=== PATIENT | male | born 1960 | race Caucasian/White ===

== ENCOUNTER 2017-12-18 12:15 | Emergency (ER) | payer OTHER ==
[2017-12-18 13:56] VITALS: BP 150/83
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
== END 2017-12-18 13:55 | disposition home or self-care (01) ==
LOC: ED 12:15
DX: S67.193A Crushing injury of left middle finger, initial encounter (principal); W23.0XXA Caught, crushed, jammed, or pinched between moving objects, initial encounter; Y92.9 Unspecified place or not applicable
CPT/HCPCS: 99282

== ENCOUNTER 2018-01-15 17:39 | Inpatient (IN) | payer OTHER ==
[2018-01-15] MEDS ORDERED: NS 0.9% 1000 ML*IV.FLUID IV ONE (18:10)
[2018-01-15 18:32] LABS: Hematocrit 43 % (42-52); Hemoglobin 14.7 g/dl (14.0-18.0); Mean Corpuscular HGB Conc 34 g/dl (31-36); Mean Corpuscular Hemoglobin 31 pg (27-31); Mean Corpuscular Volume 91 fL (80-94); Mean Platelet Volume 10 um3 (7.4-10.4); Platelet Count 179 10^3/ul (150-450); Red Blood Count 4.77 10^6/ul (4.0-5.4); Red Cell Distribution Width 13 % (10.5-15); White Blood Count 12.8 10^3/ul (3.5-10.8)
[2018-01-15 18:43] LABS: Urine Appearance Clear; Urine Blood 1+ (Negative); Urine Color Straw; Urine Ketones 2+ (Negative); Urine Protein Negative (Negative); Urine Specific Gravity 1.033 (1.010-1.030); Urine Urobilinogen Negative (Negative)
[2018-01-15 18:47] LABS: EGFR Non-African American 126.2 (>60)
[2018-01-15 18:48] LABS: INR 0.95 (0.77-1.02)
--- NOTE | 2018-01-15 18:52 | RAD ---
Indication: Cellulitis. Single frontal view of the chest performed at 1823 hours was reviewed. Comparison is made with previous exam dated March 18, 2016. No mediastinal shift is noted. Heart is of normal size and configuration. Lung rosas appear clear. IMPRESSION: NO ACTIVE CARDIOPULMONARY DISEASE IS NOTED.
[2018-01-15] MEDS ORDERED: Iohexol 300* (CONTRAST) 10 ML SDV IV ONE (18:57)
[2018-01-15] MEDS ORDERED: Insulin REGULAR(*) 1 UNITS UNIT IV PUSH ONE (18:58)
[2018-01-15 19:10] LABS: ABS Basophils 0.1 10^3/ul (0-0.2); ABS Eosinophils 0.1 10^3/ul (0-0.6); ABS Lymphocytes 1.3 10^3/ul (1.0-4.8); ABS Monocytes 1.6 10^3/ul (0-0.8); ABS Neutrophils 9.7 10^3/ul (1.5-7.7); ABS Nucleated RBC 0 10^3/ul; Eosinophil % 0.5 % (0-6); Lymphocyte % 9.9 % (25-47); Nucleated Red Blood Cells % 0
[2018-01-15] MEDS ORDERED: Acetaminophen TAB* 325 MG PO ONE (19:21)
[2018-01-15] MEDS: Iodixanol* (CONTRAST) 320 MG/ML 100 ML SDV IV ONE ×2 (19:42→20:57)
[2018-01-15] MEDS ORDERED: Piperacillin/Tazobac ADVAN(*) 3.375 GM in NS 0.9% 100 ML* 100 ML IVPB ONE (19:56)
[2018-01-15] MEDS ORDERED: Vancomycin(*) 1,000 MG in NS 0.9% 250 ML* 250 ML IVPB ONE (19:57)
--- NOTE | 2018-01-15 19:58 | RAD ---
Indication: Left head injury. CT of the brain was performed without IV contrast. Ventricular structures are midline. No midline shift is noted. The extra-axial spaces are unremarkable. There is no definite intracranial mass or hemorrhage. There is a large scalp hematoma over the left parietal area. No underlying calvarial fracture is noted. Mastoid air cells are otherwise unremarkable. Paranasal sinuses are unremarkable. IMPRESSION: Large scalp hematoma. No underlying skull fracture is noted. No definite intracranial hemorrhage is noted. Paranasal sinuses are clear.
--- NOTE | 2018-01-15 20:05 | RAD ---
Indication: Face and head injury. CT of the orbits was obtained in the axial plane. Sagittal and coronal reconstructed images were obtained. No fracture is identified. Scalp hematoma is noted over the left parietal area extending to the left orbit and left eyelid. No fracture of the zygoma or zygomatic arch is noted. The skull base is otherwise unremarkable. Mastoid air cells are unremarkable. Paranasal sinuses are unremarkable. The orbits are intact without evidence of intraconal or extraconal hematoma. IMPRESSION: Scalp hematoma with soft tissue swelling extending to the orbit. No fracture of the skull or orbits are identified. No intraconal or extraconal hematoma in the left orbit is noted.
[2018-01-15] MEDS ORDERED: oxyCODONE/Acetamin 5/325 MG* TAB PO ONE (20:51)
--- NOTE | 2018-01-15 21:02 | ED ---
Pop Bautista Jennifer, kendraibed for Nilesh Allan on 01/15/18 at 2002 . Progress - Progress Note Progress Note: This patient is a sign out from Dr. Hahn pending CXR, Brain CT, and Orbit CT CXR. Interpreted by a radiologist. IMPRESSION: NO ACTIVE CARDIOPULMONARY DISEASE. Dr. Allan has reviewed this report. Brain CT. Interpreted by a radiologist. IMPRESSION: Large scalp hematoma. No underlying skull fracture is noted. No definite intracranial hemorrhage is noted. Paranasal sinuses are clear. Dr. Allan has reviewed this report. Orbit CT. Interpreted by a radiologist. IMPRESSION: Scalp hematoma with soft tissue swelling extending to the orbit. No fracture of the skull or orbits are identified. No intraconal or extraconal hematoma in the left orbit is noted. Dr. Allan has reviewed this report. Course/Dx - Course Course Of Treatment: The patient is a sign out from Dr. Hahn. CXR, Brain CT, and Orbit CT were obtained. The patient is diagnosed with cellulitis of the face and hyperglycemia. The patient will be admitted to [facility] [place]. - Diagnoses Provider Diagnoses: Cellulitis of face, Hyperglycemia The documentation as recorded by the Pop wolff Jennifer accurately reflects the service I personally performed and the decisions made by Jerrell ortiz Emmanuel.
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
[2018-01-15] MEDS ORDERED: HYDROmorphone INJ* 1 MG/ML CARPUJECT SYRINGE IV ONE (22:03)
--- NOTE | 2018-01-15 22:29 | HP ---
H&P (Free Text) History and Physical: PCP: Milly Vega Date/Time: 01/15/2018 2220 CC: swelling, redness, & pain L faith HPI: Mr Ogden is a 57YO male HX DM2 on metformin who was in his barn 3 days ago when a board fell striking him in the L parietal area causing an abrasion. In the interim he has developed worsening erythema, localized swelling, and pain associated with F/C & sweats. He denies N/V, diarrhea, drainage, or other issues. He called the [facility] who advised ED evaluation which was positive for SIRS 2nd cellulitis and abscess formation of the L parietal scalp. PMedHx rheumatoid arthritis DM2 Ambulatory Orders Nursing to reconcile. NK [No Home Medications Reported] 01/15/18 Allergies prednisone Allergy (Verified 01/15/18 17:46) See Comment acute psychosis PSurgHx L cataract extraction SocHx: former smoker but now vapes non-nicotine home made solution, denies alcohol & recreational drugs; single, no children; self-employed; full code status FamHx: Mother passed in her 60s 2nd CAD. Father has been estranged his whole life. ROS: as above, otherwise reviewed and all were negative vitals: Vital Signs Temp 36.9 C 01/16/18 03:46 Pulse 123 01/16/18 03:46 Resp 20 01/16/18 03:55 BP 143/88 01/16/18 03:46 Pulse Ox 96 01/16/18 03:46 Intake & Output 01/15/18 01/15/18 01/16/18 11:59 23:59 11:59 Weight 104.326 kg 91.58 kg Constitutional: NAD, normally developed, well-nourished white male HEENM: swelling/erythema/tenderness L face and parietal scalp; sclera/ conjunctiva: anicteric; hearing: clinically mildly decreased; oropharynx: clear , mucosa moist Neck: soft tissue: no nuchal rigidity; thyroid: normal Pulmonary: clear to auscultation bilaterally, good aeration, no accessory muscle use CV: RR/RR, normal S1S2, no carotid bruit, no jugular venous distention, 2+ B DP/ PT, no edema Abdominal: soft, non-distended, non-tender, no rebound/guarding/rigidity, normoactive bowel sounds, no hepatosplenomegaly or masses, no costovertebral angle tenderness Musculoskeletal: general: grossly intact, no tenderness to palpation Integumental: L scalp with ~2cm flocculent area which was I&D'd in the ED by this journalists and other writers using an 18g needle edge yielding ~1.5cc marysol pus, wound CX sent Psychiatric orientation: AA&O to PPS affect: calm mood: cooperative eye contact: fair to good content: reliable responses: timely insight: good Testing: Lab Results 01/15/18 01/15/18 01/15/18 Range/Units 18:20 18:20 18:20 WBC (3.5-10.8) 10^3/ul RBC (4.0-5.4) 10^6/ul Hgb (14.0-18.0) g/dl Hct (42-52) % MCV (80-94) fL MCH (27-31) pg MCHC (31-36) g/dl RDW (10.5-15) % Plt Count (150-450) 10^3/ul MPV (7.4-10.4) um3 Neut % (Auto) (38-83) % Lymph % (Auto) (25-47) % Woodward % (Auto) (0-7) % Eos % (Auto) (0-6) % Baso % (Auto) (0-2) % Absolute Neuts (auto) (1.5-7.7) 10^3/ul Absolute Lymphs (auto) (1.0-4.8) 10^3/ul Absolute Monos (auto) (0-0.8) 10^3/ul Absolute Eos (auto) (0-0.6) 10^3/ul Absolute Basos (auto) (0-0.2) 10^3/ul Absolute Nucleated RBC 10^3/ul Nucleated RBC % ESR (0-20) mm/Hr INR (Anticoag Therapy) 0.95 (0.77-1.02) APTT 30.2 (26.0-36.3) seconds VBG pH (7.33-7.43) VBG pCO2 (41-51) mmHg VBG pO2 (35-45) mmHg VBG HCO3 (24-28) mmol/L VBG O2 Saturation (70-80) % VBG Base Excess (0-4) Sodium 128 L (133-145) mmol/L Potassium 4.1 (3.5-5.0) mmol/L Chloride 94 L (101-111) mmol/L Carbon Dioxide 21 L (22-32) mmol/L Anion Gap 13 H (2-11) mmol/L BUN 15 (6-24) mg/dL Creatinine 0.65 L (0.67-1.17) mg/dL Est GFR ( Amer) 162.3 (>60) Est GFR (Non-Af Amer) 126.2 (>60) BUN/Creatinine Ratio 23.1 H (8-20) Glucose 546 H* (70-100) mg/dL POC Glucose (mg/dL) (70-100) mg/dL Hemoglobin A1c (4.0-5.6) % Lactic Acid (0.5-2.0) mmol/L Calcium 9.3 (8.6-10.3) mg/dL Total Bilirubin 0.70 (0.2-1.0) mg/dL AST 8 L (13-39) U/L ALT 6 L (7-52) U/L Alkaline Phosphatase 75 (34-104) U/L Total Creatine Kinase 29 (10-223) U/L Troponin I 0.03 (<0.04) ng/mL C-Reactive Protein 248.16 H (< 5.00) mg/L B-Natriuretic Peptide 226 H ( - 100) pg/mL Total Protein 6.9 (6.4-8.9) g/dL Albumin 3.6 (3.2-5.2) g/dL Globulin 3.3 (2-4) g/dL Albumin/Globulin Ratio 1.1 (1-3) Urine Color Urine Appearance Urine pH (5-9) Ur Specific [place] (1.010-1.030) Urine Protein (Negative) Urine Ketones (Negative) Urine Blood (Negative) Urine Nitrate (Negative) Urine Bilirubin (Negative) Urine Urobilinogen (Negative) Ur Leukocyte Esterase (Negative) Urine WBC (Auto) (Absent) Urine RBC (Auto) (Absent) Urine Bacteria (Absent) Urine Glucose (Negative) 01/15/18 01/15/18 01/15/18 Range/Units 18:20 18:20 18:20 WBC 12.8 H (3.5-10.8) 10^3/ul RBC 4.77 (4.0-5.4) 10^6/ul Hgb 14.7 (14.0-18.0) g/dl Hct 43 (42-52) % MCV 91 (80-94) fL MCH 31 (27-31) pg MCHC 34 (31-36) g/dl RDW 13 (10.5-15) % Plt Count 179 (150-450) 10^3/ul MPV 10 (7.4-10.4) um3 Neut % (Auto) 76.4 (38-83) % Lymph % (Auto) 9.9 L (25-47) % Woodward % (Auto) 12.6 H (0-7) % Eos % (Auto) 0.5 (0-6) % Baso % (Auto) 0.6 (0-2) % Absolute Neuts (auto) 9.7 H (1.5-7.7) 10^3/ul Absolute Lymphs (auto) 1.3 (1.0-4.8) 10^3/ul Absolute Monos (auto) 1.6 H (0-0.8) 10^3/ul Absolute Eos (auto) 0.1 (0-0.6) 10^3/ul Absolute Basos (auto) 0.1 (0-0.2) 10^3/ul Absolute Nucleated RBC 0 10^3/ul Nucleated RBC % 0 ESR 74 H (0-20) mm/Hr INR (Anticoag Therapy) (0.77-1.02) APTT (26.0-36.3) seconds VBG pH (7.33-7.43) VBG pCO2 (41-51) mmHg VBG pO2 (35-45) mmHg VBG HCO3 (24-28) mmol/L VBG O2 Saturation (70-80) % VBG Base Excess (0-4) Sodium (133-145) mmol/L Potassium (3.5-5.0) mmol/L Chloride (101-111) mmol/L Carbon Dioxide (22-32) mmol/L Anion Gap (2-11) mmol/L BUN (6-24) mg/dL Creatinine (0.67-1.17) mg/dL Est GFR ( Amer) (>60) Est GFR (Non-Af Amer) (>60) BUN/Creatinine Ratio (8-20) Glucose (70-100) mg/dL POC Glucose (mg/dL) (70-100) mg/dL Hemoglobin A1c (4.0-5.6) % Lactic Acid 1.3 (0.5-2.0) mmol/L Calcium (8.6-10.3) mg/dL Total Bilirubin (0.2-1.0) mg/dL AST (13-39) U/L ALT (7-52) U/L Alkaline Phosphatase (34-104) U/L Total Creatine Kinase (10-223) U/L Troponin I (<0.04) ng/mL C-Reactive Protein (< 5.00) mg/L B-Natriuretic Peptide ( - 100) pg/mL Total Protein (6.4-8.9) g/dL Albumin (3.2-5.2) g/dL Globulin (2-4) g/dL Albumin/Globulin Ratio (1-3) Urine Color Straw Urine Appearance Clear Urine pH 6.0 (5-9) Ur Specific [place] 1.033 H (1.010-1.030) Urine Protein Negative (Negative) Urine Ketones 2+ H (Negative) Urine Blood 1+ H (Negative) Urine Nitrate Negative (Negative) Urine Bilirubin Negative (Negative) Urine Urobilinogen Negative (Negative) Ur Leukocyte Esterase Negative (Negative) Urine WBC (Auto) Trace(0-5/hpf) (Absent) Urine RBC (Auto) Trace(0-2/hpf) (Absent) Urine Bacteria Absent (Absent) Urine Glucose 3+(>=500 mg/dl) H (Negative) 01/15/18 01/15/18 01/15/18 Range/Units 18:20 19:21 22:03 WBC (3.5-10.8) 10^3/ul RBC (4.0-5.4) 10^6/ul Hgb (14.0-18.0) g/dl Hct (42-52) % MCV (80-94) fL MCH (27-31) pg MCHC (31-36) g/dl RDW (10.5-15) % Plt Count (150-450) 10^3/ul MPV (7.4-10.4) um3 Neut % (Auto) (38-83) % Lymph % (Auto) (25-47) % Woodward % (Auto) (0-7) % Eos % (Auto) (0-6) % Baso % (Auto) (0-2) % Absolute Neuts (auto) (1.5-7.7) 10^3/ul Absolute Lymphs (auto) (1.0-4.8) 10^3/ul Absolute Monos (auto) (0-0.8) 10^3/ul Absolute Eos (auto) (0-0.6) 10^3/ul Absolute Basos (auto) (0-0.2) 10^3/ul Absolute Nucleated RBC 10^3/ul Nucleated RBC % ESR (0-20) mm/Hr INR (Anticoag Therapy) (0.77-1.02) APTT (26.0-36.3) seconds VBG pH 7.36 (7.33-7.43) VBG pCO2 38 L (41-51) mmHg VBG pO2 49 H (35-45) mmHg VBG HCO3 21.9 L (24-28) mmol/L VBG O2 Saturation 88.4 H (70-80) % VBG Base Excess -3.5 L (0-4) Sodium (133-145) mmol/L Potassium (3.5-5.0) mmol/L Chloride (101-111) mmol/L Carbon Dioxide (22-32) mmol/L Anion Gap (2-11) mmol/L BUN (6-24) mg/dL Creatinine (0.67-1.17) mg/dL Est GFR ( Amer) (>60) Est GFR (Non-Af Amer) (>60) BUN/Creatinine Ratio (8-20) Glucose (70-100) mg/dL POC Glucose (mg/dL) (70-100) mg/dL Hemoglobin A1c 13.7 H (4.0-5.6) % Lactic Acid 0.7 (0.5-2.0) mmol/L Calcium (8.6-10.3) mg/dL Total Bilirubin (0.2-1.0) mg/dL AST (13-39) U/L ALT (7-52) U/L Alkaline Phosphatase (34-104) U/L Total Creatine Kinase (10-223) U/L Troponin I (<0.04) ng/mL C-Reactive Protein (< 5.00) mg/L B-Natriuretic Peptide ( - 100) pg/mL Total Protein (6.4-8.9) g/dL Albumin (3.2-5.2) g/dL Globulin (2-4) g/dL Albumin/Globulin Ratio (1-3) Urine Color Urine Appearance Urine pH (5-9) Ur Specific [place] (1.010-1.030) Urine Protein (Negative) Urine Ketones (Negative) Urine Blood (Negative) Urine Nitrate (Negative) Urine Bilirubin (Negative) Urine Urobilinogen (Negative) Ur Leukocyte Esterase (Negative) Urine WBC (Auto) (Absent) Urine RBC (Auto) (Absent) Urine Bacteria (Absent) Urine Glucose (Negative) 01/16/18 01/16/18 01/16/18 Range/Units 00:19 01:21 01:21 WBC (3.5-10.8) 10^3/ul RBC (4.0-5.4) 10^6/ul Hgb (14.0-18.0) g/dl Hct (42-52) % MCV (80-94) fL MCH (27-31) pg MCHC (31-36) g/dl RDW (10.5-15) % Plt Count (150-450) 10^3/ul MPV (7.4-10.4) um3 Neut % (Auto) (38-83) % Lymph % (Auto) (25-47) % Woodward % (Auto) (0-7) % Eos % (Auto) (0-6) % Baso % (Auto) (0-2) % Absolute Neuts (auto) (1.5-7.7) 10^3/ul Absolute Lymphs (auto) (1.0-4.8) 10^3/ul Absolute Monos (auto) (0-0.8) 10^3/ul Absolute Eos (auto) (0-0.6) 10^3/ul Absolute Basos (auto) (0-0.2) 10^3/ul Absolute Nucleated RBC 10^3/ul Nucleated RBC % ESR (0-20) mm/Hr INR (Anticoag Therapy) 0.90 (0.77-1.02) APTT 28.0 (26.0-36.3) seconds VBG pH (7.33-7.43) VBG pCO2 (41-51) mmHg VBG pO2 (35-45) mmHg VBG HCO3 (24-28) mmol/L VBG O2 Saturation (70-80) % VBG Base Excess (0-4) Sodium (133-145) mmol/L Potassium (3.5-5.0) mmol/L Chloride (101-111) mmol/L Carbon Dioxide (22-32) mmol/L Anion Gap (2-11) mmol/L BUN 13 (6-24) mg/dL Creatinine 0.64 L (0.67-1.17) mg/dL Est GFR ( Amer) 165.2 (>60) Est GFR (Non-Af Amer) 128.5 (>60) BUN/Creatinine Ratio (8-20) Glucose (70-100) mg/dL POC Glucose (mg/dL) 297 H (70-100) mg/dL Hemoglobin A1c (4.0-5.6) % Lactic Acid (0.5-2.0) mmol/L Calcium (8.6-10.3) mg/dL Total Bilirubin (0.2-1.0) mg/dL AST (13-39) U/L ALT (7-52) U/L Alkaline Phosphatase (34-104) U/L Total Creatine Kinase (10-223) U/L Troponin I (<0.04) ng/mL C-Reactive Protein (< 5.00) mg/L B-Natriuretic Peptide ( - 100) pg/mL Total Protein (6.4-8.9) g/dL Albumin (3.2-5.2) g/dL Globulin (2-4) g/dL Albumin/Globulin Ratio (1-3) Urine Color Urine Appearance Urine pH (5-9) Ur Specific [place] (1.010-1.030) Urine Protein (Negative) Urine Ketones (Negative) Urine Blood (Negative) Urine Nitrate (Negative) Urine Bilirubin (Negative) Urine Urobilinogen (Negative) Ur Leukocyte Esterase (Negative) Urine WBC (Auto) (Absent) Urine RBC (Auto) (Absent) Urine Bacteria (Absent) Urine Glucose (Negative) 01/16/18 Range/Units 01:21 WBC 12.1 H (3.5-10.8) 10^3/ul RBC 4.61 (4.0-5.4) 10^6/ul Hgb 14.4 (14.0-18.0) g/dl Hct 42 (42-52) % MCV 91 (80-94) fL MCH 31 (27-31) pg MCHC 34 (31-36) g/dl RDW 13 (10.5-15) % Plt Count 166 (150-450) 10^3/ul MPV 10 (7.4-10.4) um3 Neut % (Auto) 70.4 (38-83) % Lymph % (Auto) 16.7 L (25-47) % Woodward % (Auto) 10.8 H (0-7) % Eos % (Auto) 1.3 (0-6) % Baso % (Auto) 0.8 (0-2) % Absolute Neuts (auto) 8.5 H (1.5-7.7) 10^3/ul Absolute Lymphs (auto) 2.0 (1.0-4.8) 10^3/ul Absolute Monos (auto) 1.3 H (0-0.8) 10^3/ul Absolute Eos (auto) 0.2 (0-0.6) 10^3/ul Absolute Basos (auto) 0.1 (0-0.2) 10^3/ul Absolute Nucleated RBC 0 10^3/ul Nucleated RBC % 0.2 ESR (0-20) mm/Hr INR (Anticoag Therapy) (0.77-1.02) APTT (26.0-36.3) seconds VBG pH (7.33-7.43) VBG pCO2 (41-51) mmHg VBG pO2 (35-45) mmHg VBG HCO3 (24-28) mmol/L VBG O2 Saturation (70-80) % VBG Base Excess (0-4) Sodium (133-145) mmol/L Potassium (3.5-5.0) mmol/L Chloride (101-111) mmol/L Carbon Dioxide (22-32) mmol/L Anion Gap (2-11) mmol/L BUN (6-24) mg/dL Creatinine (0.67-1.17) mg/dL Est GFR ( Amer) (>60) Est GFR (Non-Af Amer) (>60) BUN/Creatinine Ratio (8-20) Glucose (70-100) mg/dL POC Glucose (mg/dL) (70-100) mg/dL Hemoglobin A1c (4.0-5.6) % Lactic Acid (0.5-2.0) mmol/L Calcium (8.6-10.3) mg/dL Total Bilirubin (0.2-1.0) mg/dL AST (13-39) U/L ALT (7-52) U/L Alkaline Phosphatase (34-104) U/L Total Creatine Kinase (10-223) U/L Troponin I (<0.04) ng/mL C-Reactive Protein (< 5.00) mg/L B-Natriuretic Peptide ( - 100) pg/mL Total Protein (6.4-8.9) g/dL Albumin (3.2-5.2) g/dL Globulin (2-4) g/dL Albumin/Globulin Ratio (1-3) Urine Color Urine Appearance Urine pH (5-9) Ur Specific [place] (1.010-1.030) Urine Protein (Negative) Urine Ketones (Negative) Urine Blood (Negative) Urine Nitrate (Negative) Urine Bilirubin (Negative) Urine Urobilinogen (Negative) Ur Leukocyte Esterase (Negative) Urine WBC (Auto) (Absent) Urine RBC (Auto) (Absent) Urine Bacteria (Absent) Urine Glucose (Negative) ECG, personally reviewed: NSR rate 124, no ischemia CXR, personally reviewed: IMPRESSION: NO ACTIVE CARDIOPULMONARY DISEASE IS NOTED. CT orbits WO, personally reviewed: IMPRESSION: Scalp hematoma with soft tissue swelling extending to the orbit. No fracture of the skull or orbits are identified. No intraconal or extraconal hematoma in the left orbit is noted. CT brain WO, personally reviewed: IMPRESSION: Large scalp hematoma. No underlying skull fracture is noted. No definite intracranial hemorrhage is noted. Paranasal sinuses are clear. Impression: 57M HX DM2 presents with sepsis 2nd cellulitis & abscess formation of the L parietal scalp extending into the L upper face DIAGNOSIS & PLAN Primary sepsis 2nd cellulitis & abscess formation of the L parietal scalp extending into the L upper face : IV vancomycin & piperacillin/tazobactam given in ED : MSSA positive/MRSA negative wound screen, continue with cefepime starting in AM : IVFs : pain control : supportive care Secondary DM2 : check A1c : consistent carb diet : correctional insulin rheumatoid arthritis : no acute issues Admission Rational: admission for sepsis 2nd scalp abscess requiring IV ABX & IVFs; inappropriate for outpatient setting DVTp: SCDs & heparin SQ Code Status: full HCP: declines to designate
[2018-01-15] MEDS ORDERED: Albuterol 2.5 MG/3 ML NEB.SOL* (0.083%) INH PRN (22:32)
[2018-01-15] MEDS ORDERED: Melatonin (NF) 3 MG TAB PO PRN (22:32)
[2018-01-15] MEDS ORDERED: Ondansetron INJ* 2 MG/ML VIAL IV PRN (22:33)
[2018-01-15] MEDS ORDERED: Vancomycin per Pharmacy* NOTE FOLLOW UP SCH (23:00)
[2018-01-16] MEDS: traMADol TAB* 50 MG PO PRN ×2 (00:51→15:31)
[2018-01-16] MEDS: NS 0.9% 1000 ML* 1,000 ML IV SCH ×3 (00:52→21:56)
[2018-01-16] MEDS: Iodixanol* (CONTRAST) 320 MG/ML 100 ML SDV IV ONE (01:37)
[2018-01-16 01:43] LABS: ABS Basophils 0.1 10^3/ul (0-0.2); ABS Eosinophils 0.2 10^3/ul (0-0.6); ABS Monocytes 1.3 10^3/ul (0-0.8); ABS Neutrophils 8.5 10^3/ul (1.5-7.7); ABS Nucleated RBC 0 10^3/ul; Eosinophil % 1.3 % (0-6); Hematocrit 42 % (42-52); Hemoglobin 14.4 g/dl (14.0-18.0); Lymphocyte % 16.7 % (25-47); Mean Corpuscular HGB Conc 34 g/dl (31-36); Mean Corpuscular Hemoglobin 31 pg (27-31); Mean Corpuscular Volume 91 fL (80-94); Mean Platelet Volume 10 um3 (7.4-10.4); Nucleated Red Blood Cells % 0.2; Platelet Count 166 10^3/ul (150-450); Red Blood Count 4.61 10^6/ul (4.0-5.4); Red Cell Distribution Width 13 % (10.5-15); White Blood Count 12.1 10^3/ul (3.5-10.8)
[2018-01-16 01:53] LABS: INR 0.9 (0.77-1.02)
[2018-01-16 01:58] LABS: EGFR Non-African American 128.5 (>60)
[2018-01-16] MEDS: oxyCODONE TAB* 5 MG TAB PO PRN ×3 (02:02→19:31)
[2018-01-16] MEDS: Cefepime(*) 1 GM in D5W 50 ML BAG* 50 ML IVPB SCH ×2 (04:12→15:32)
[2018-01-16] MEDS: Omeprazole CAP* 20 MG PO SCH (05:19)
[2018-01-16] MEDS: Heparin VIAL(*) 5000 UNITS/ML VIAL (FIVE THOUSAND) SUBCUT SCH ×3 (05:19→21:00)
[2018-01-16 06:21] LABS: Hematocrit 40 % (42-52); Hemoglobin 13.7 g/dl (14.0-18.0); Mean Corpuscular HGB Conc 34 g/dl (31-36); Mean Corpuscular Hemoglobin 31 pg (27-31); Mean Corpuscular Volume 91 fL (80-94); Mean Platelet Volume 9 um3 (7.4-10.4); Platelet Count 161 10^3/ul (150-450); Red Cell Distribution Width 13 % (10.5-15); White Blood Count 11.7 10^3/ul (3.5-10.8)
[2018-01-16 06:36] LABS: EGFR Non-African American 146.8 (>60)
[2018-01-16 07:10] LABS: ABS Basophils 0.1 10^3/ul (0-0.2); ABS Eosinophils 0.1 10^3/ul (0-0.6); ABS Lymphocytes 1.2 10^3/ul (1.0-4.8); ABS Monocytes 1.6 10^3/ul (0-0.8); ABS Neutrophils 8.8 10^3/ul (1.5-7.7); ABS Nucleated RBC 0 10^3/ul; Eosinophil % 0.9 % (0-6); Lymphocyte % 10.1 % (25-47); Nucleated Red Blood Cells % 0
--- NOTE | 2018-01-16 08:42 | PN ---
Subjective Date of Service: 01/16/18 Interval History: . Interviewed and examined patient at bedside; Discussed case with Dr. Galo ; Reviewed previous notes and radiology results; Family History: Unchanged from Admission Social History: Unchanged from Admission Past Medical History: Unchanged from Admission Objective Active Medications: . Acetaminophen (Tylenol Tab*) 650 mg PO Q6H PRN PRN Reason: FEVER/PAIN Albuterol (Ventolin 2.5 Mg/3 Ml Neb.Perla*) 2.5 mg INH Q2H PRN PRN Reason: SOB/WHEEZING Docusate Sodium (Colace Cap*) 200 mg PO BID [facility] Heparin Sodium (Porcine) (Heparin Vial(*)) 5,000 units SUBCUT Q8HR [facility] Last Admin: 01/16/18 05:19 Dose: 5,000 units Hydromorphone HCl (Dilaudid Injic*) 0.5 mg IV Q4H PRN PRN Reason: PAIN Sodium Chloride (Ns 0.9% 1000 Ml*) 1,000 mls @ 100 mls/hr IV PER RATE [facility] Last Admin: 01/16/18 00:52 Dose: 100 mls/hr Cefepime HCl 1 gm/ Dextrose 50 mls @ 100 mls/hr IVPB Q12H [facility] Last Admin: 01/16/18 04:12 Dose: 100 mls/hr Insulin Human Lispro (Humalog*) 0 units SUBCUT ACHS MEE PRN Reason: Protocol Melatonin (Melatonin (Nf)) 3 mg PO BEDTIME PRN; Protocol PRN Reason: Sleep Omeprazole (Prilosec Cap*) 20 mg PO DAILY@0600 [facility] Last Admin: 01/16/18 05:19 Dose: 20 mg Ondansetron HCl (Zofran Inj*) 4 mg IV Q6H PRN PRN Reason: NAUSEA Oxycodone HCl (Roxycodone Tab) 5 mg PO Q4H PRN PRN Reason: PAIN Last Admin: 01/16/18 02:02 Dose: 5 mg Tramadol HCl (Ultram*) 50 mg PO Q6H PRN PRN Reason: PAIN Last Admin: 01/16/18 00:51 Dose: 50 mg . Vital Signs - 8 hr 01/16/18 01/16/18 01/16/18 00:44 00:51 01:36 Temperature 98.6 F Pulse Rate 125 Respiratory 20 20 20 Rate Blood Pressure 148/100 (mmHg) O2 Sat by Pulse 96 Oximetry 01/16/18 01/16/18 01/16/18 01:50 02:02 03:31 Temperature 98.6 F Pulse Rate 123 Respiratory 20 20 20 Rate Blood Pressure 148/100 (mmHg) O2 Sat by Pulse 95 Oximetry Oxygen Devices in Use Now: None Appearance: NAD Eyes: No Scleral Icterus Ears/Nose/Mouth/Throat: Clear Oropharnyx Neck: Trachea Midline Respiratory: Clear to Auscultation Cardiovascular: NL Sounds; No Murmurs; No JVD Lymphatic: No Axillary Adenopathy Extremities: No Edema Skin: No Rash or Ulcers Neurological: Alert and Oriented x 3, NL Gait Lines/Tubes/Other Access: Clean, Dry and Intact Peripheral IV Nutrition: Taking PO's Result Diagrams: 01/16/18 06:01 01/16/18 06:01 Additional Lab and Data: . Assess/Plan/Problems-Billing . Assessment: 57 y.o. M with h/o RA and DM2, now with head injury, infected scalp hematoma with abscess and surrounding cellulitis. #1. Sepsis 2nd cellulitis & abscess formation of the L parietal scalp extending into the L upper face - MSSA positive/MRSA negative wound screen, - await final culture results - change cefepime to oxacillin 2g IV q4 given MSSA culture results and failure to respond to cefepime. - IVFs, as needed - pain control - supportive care - Given Hgb A1C > 13 --> risk for other causes of infection ,like fungal infection, must be considered. - Request ID consultation 01/17/18 to comment on overall antibiotic regimen. Secondary #2 - DM2 - check A1c --> 13.6 ! - consistent carb diet - correctional insulin - add basal insulin ; start with lantus 15 units QHS --> expect to increase dose. #3 - rheumatoid arthritis - no acute issues .
[2018-01-16] MEDS: Insulin LISPRO* 1 UNITS UNIT SUBCUT SCH ×4 (09:06→20:59)
[2018-01-16] MEDS: Docusate CAP* 100 MG PO SCH ×3 (09:08→20:59)
[2018-01-16] MEDS: HYDROmorphone INJ* 1 MG/ML CARPUJECT SYRINGE IV PRN ×3 (11:48→19:30)
[2018-01-16] MEDS: Insulin GLARGINE(*) 1 UNITS UNIT SUBCUT SCH (17:47)
[2018-01-16] MEDS: Oxacillin(*) 2 GM in NS 0.9% 100 ML* 100 ML IVPB SCH ×2 (17:47→21:58)
[2018-01-17] MEDS: Oxacillin(*) 2 GM in NS 0.9% 100 ML* 100 ML IVPB SCH ×6 (02:12→22:20)
[2018-01-17] MEDS: HYDROmorphone INJ* 1 MG/ML CARPUJECT SYRINGE IV PRN ×2 (05:03→23:55)
[2018-01-17] MEDS: oxyCODONE TAB* 5 MG TAB PO PRN ×4 (05:05→20:52)
[2018-01-17] MEDS: Omeprazole CAP* 20 MG PO SCH (05:05)
[2018-01-17] MEDS: Heparin VIAL(*) 5000 UNITS/ML VIAL (FIVE THOUSAND) SUBCUT SCH ×3 (05:06→20:51)
[2018-01-17 06:44] LABS: ABS Basophils 0.1 10^3/ul (0-0.2); ABS Eosinophils 0.2 10^3/ul (0-0.6); ABS Lymphocytes 1.2 10^3/ul (1.0-4.8); ABS Monocytes 0.8 10^3/ul (0-0.8); ABS Neutrophils 5.3 10^3/ul (1.5-7.7); ABS Nucleated RBC 0 10^3/ul; Eosinophil % 2.3 % (0-6); Hematocrit 34 % (42-52); Hemoglobin 11.9 g/dl (14.0-18.0); Lymphocyte % 15.5 % (25-47); Mean Corpuscular HGB Conc 35 g/dl (31-36); Mean Corpuscular Hemoglobin 31 pg (27-31); Mean Corpuscular Volume 90 fL (80-94); Mean Platelet Volume 9 um3 (7.4-10.4); Nucleated Red Blood Cells % 0; Platelet Count 147 10^3/ul (150-450); Red Blood Count 3.78 10^6/ul (4.0-5.4); Red Cell Distribution Width 13 % (10.5-15); White Blood Count 7.5 10^3/ul (3.5-10.8)
[2018-01-17 07:07] LABS: EGFR Non-African American 234.4 (>60)
[2018-01-17] MEDS ORDERED: NS 0.9% 100 ML* 100 ML ONE (08:49)
--- NOTE | 2018-01-17 08:57 | PN ---
Subjective Date of Service: 01/17/18 Interval History: Intensity of pain, area involved, and swelling all slightly less than yesterday. No sweats or chills. Appetite OK. No bowel c/o. Family History: Unchanged from Admission Social History: Unchanged from Admission Past Medical History: Unchanged from Admission Objective Active Medications: Acetaminophen (Tylenol Tab*) 650 mg PO Q6H PRN PRN Reason: FEVER/PAIN Albuterol (Ventolin 2.5 Mg/3 Ml Neb.Perla*) 2.5 mg INH Q2H PRN PRN Reason: SOB/WHEEZING Heparin Sodium (Porcine) (Heparin Vial(*)) 5,000 units SUBCUT Q8HR [facility] Last Admin: 01/17/18 05:06 Dose: 5,000 units Hydromorphone HCl (Dilaudid Injic*) 0.5 mg IV Q4H PRN PRN Reason: PAIN Last Admin: 01/17/18 05:03 Dose: 0.5 mg Sodium Chloride (Ns 0.9% 1000 Ml*) 1,000 mls @ 100 mls/hr IV PER RATE [facility] Last Admin: 01/16/18 21:56 Dose: 100 mls/hr Oxacillin Sodium 2 gm/ Sodium (Chloride) 100 mls @ 200 mls/hr IVPB Q4H [facility] Last Admin: 01/17/18 05:07 Dose: 200 mls/hr Insulin Glargine (Lantus(*)) 15 units SUBCUT Q24H [facility] Last Admin: 01/16/18 17:47 Dose: 15 units Insulin Human Lispro (Humalog*) 0 units SUBCUT ACHS [facility] PRN Reason: Protocol Last Admin: 01/16/18 20:59 Dose: 4 units Ondansetron HCl (Zofran Inj*) 4 mg IV Q6H PRN PRN Reason: NAUSEA Oxycodone HCl (Roxycodone Tab*) 5 mg PO Q4H PRN PRN Reason: PAIN Last Admin: 01/17/18 05:05 Dose: 5 mg Tramadol HCl (Ultram*) 50 mg PO Q6H PRN PRN Reason: PAIN Last Admin: 01/16/18 15:31 Dose: 50 mg Vital Signs - 8 hr 01/17/18 01/17/18 01/17/18 03:40 05:03 05:05 Temperature 97.9 F Pulse Rate 83 Respiratory 20 18 18 Rate Blood Pressure 128/69 (mmHg) O2 Sat by Pulse 99 Oximetry 01/17/18 01/17/18 06:15 07:27 Temperature 98.1 F Pulse Rate 81 Respiratory 17 16 Rate Blood Pressure 120/70 (mmHg) O2 Sat by Pulse 96 Oximetry Oxygen Devices in Use Now: None Appearance: Alert, sitting on the edge of his bed. In good spirits. Looks comfortable. Eyes: No Scleral Icterus Neck: NL Appearance and Movements; NL JVP, No Thyroid Enlargement, Masses Respiratory: Symmetrical Chest Expansion and Respiratory Effort, Clear to Auscultation, Clear to Percussion Cardiovascular: NL Sounds; No Murmurs; No JVD, RRR, No Edema, - Extremities: No Edema, No Clubbing, Cyanosis, - Skin: No Nodules or Sclerosis, - - small amount purulent drainage on bandage and skin L scalp, very tender up to 6 cm from wound. Minimal swelling L upper lid and scalp. Result Diagrams: 01/17/18 06:30 01/17/18 06:30 Additional Lab and Data: . Assess/Plan/Problems-Billing . Assessment: 57 y.o. M with h/o RA and DM2, now with head injury, infected scalp hematoma with abscess and surrounding cellulitis. #1. Sepsis 2nd cellulitis & abscess formation of the L parietal scalp extending into the L upper face - MSSA positive/MRSA negative wound screen, - await final culture results - change cefepime to oxacillin 2g IV q4 given MSSA culture results and failure to respond to cefepime. - IVFs, as needed - pain control - supportive care - Given Hgb A1C > 13 --> risk for other causes of infection ,like fungal infection, must be considered. - Request ID consultation 01/17/18 to comment on overall antibiotic regimen. Secondary #2 - DM2 - check A1c --> 13.6 ! - consistent carb diet - correctional insulin - add basal insulin ; start with lantus 15 units QHS --> expect to increase dose. #3 - rheumatoid arthritis - no acute issues . - Patient Problems (1) Scalp abscess Current Visit: Yes Status: Acute Code(s): L02.811 - CUTANEOUS ABSCESS OF HEAD [ANY PART, EXCEPT FACE] SNOMED Code(s): 77581148 Comment: Slowlly improving, drained in ED. Continue oxacillin. C&S grew MSSA. (2) Diabetes Current Visit: Yes Status: Acute Code(s): E11.9 - TYPE 2 DIABETES MELLITUS WITHOUT COMPLICATIONS SNOMED Code(s): 90845453 Comment: Continue Lispro by SS. Takes metformin at home. Med rec ordered. (3) Rheumatoid arthritis Current Visit: Yes Status: Acute Code(s): M06.9 - RHEUMATOID ARTHRITIS, UNSPECIFIED SNOMED Code(s): 27853890 Comment: Little or no sx's at present. Med rec ordered.
[2018-01-17] MEDS: Insulin LISPRO* 1 UNITS UNIT SUBCUT SCH ×4 (09:03→20:51)
[2018-01-17] MEDS ORDERED: Magnesium Hydroxide LIQ* 30 ML UDC PO PRN (09:08)
[2018-01-17] MEDS: Polyethylene Glycol 3350* 17 GM PACKET PO SCH ×2 (10:04→20:52)
[2018-01-17] MEDS ORDERED: Tetan/Diph/Pertus SYR(Tdap)* 0.5 ML SYR(BOOSTRIX) use SYR IM ONE (10:30)
--- NOTE | 2018-01-17 10:48 | PN ---
Progress Note - Progress Note Date of Service: 01/17/18 Note: Mr. Aris Ogden will be discharged soon and on discharge will need to take dicloxacillin 500 mg QID for 14 days, dispense 56 tablets, no refills. His diagnosis is scalp abcess.
[2018-01-17] MEDS: Acetaminophen TAB* 325 MG PO PRN (11:52)
[2018-01-17] MEDS: NS 0.9% 1000 ML* 1,000 ML IV SCH ×2 (11:57→23:27)
--- NOTE | 2018-01-17 13:41 | CONS ---
CONSULTATION REPORT: DATE OF CONSULT: 01/17/18 REQUESTING PHYSICIAN: Dr. Merritt. CONSULTING SERVICE: Infectious Disease. REASON FOR CONSULTATION: Left scalp abscess and cellulitis. IMPRESSION: 1. Left scalp abscess and cellulitis due to methicillin-sensitive Staph aureus that had started as a hematoma that became infected after abrasion from trauma from falling wood. 2. Rheumatoid arthritis, on Enbrel. 3. Poorly controlled diabetes. RECOMMENDATIONS: 1. Continue oxacillin 2 g every 4 hours, follow with symptoms which at this point are improving with IV antibiotics and an initial drainage procedure with aspiration. 2. Blood glucose measures as you are doing. 3. Tdap. HISTORY OF PRESENT ILLNESS: This is a 57-year-old male with diabetes, rheumatoid arthritis, admitted with left face and scalp swelling and redness. About a week ago, a board fell on his face while he was in his barn, had an abrasion there. He held his Enbrel but developed redness, pain, and swelling that extended from the scalp over to his left eye and then over the bridge of his nose to the right eye. He came to the hospital on the . His white count was 13,000. In the ER, he had aspiration of the wound with some purulent material obtained, sent for gram stain that showed gram-positive cocc i and PCR staph aureus positive, the culture is pending. Blood cultures are negative. He was initia lly on vancomycin and cefepime and now on oxacillin. The white count has trended down to 7. The red ness and swelling is starting to recede from his face and is up just under the left yazidi where ther e is some pain and swelling and continued scant purulent drainage. He thinks his last tetanus shot w as close to 10 years ago. He has not had infection requiring hospitalization in the past. He has mcghee d no chills or sweats. His appetite is good. PAST MEDICAL HISTORY: 1. Rheumatoid arthritis. 2. Type 2 diabetes. MEDICATIONS: 1. Oxacillin 2 g every 4 hours. 2. Tylenol. 3. Albuterol. 4. Heparin subcutaneous injection. 5. Dilaudid as needed. 6. Insulin glargine. 7. Insulin lispro. 8. Tramadol. ALLERGIES: PREDNISONE. FAMILY HISTORY: Mother in her 60s of coronary artery disease. Father's history is unknown. SOCIAL HISTORY: He is a disabled . He lives in [place]. No sick contacts. REVIEW OF SYSTEMS: A 14-point review of systems was negative except as noted above. PHYSICAL EXAM: Vital Signs: Temperature 36.7, heart rate 80, respiratory rate 16, blood pressure 12 0/70, oxygen saturation 96% on room air. In general, he is awake, not in distress. Neurologic: He i s oriented x3. Follows all commands. HEENT: There is no conjunctival hemorrhage. Oropharynx withou t lesions. Left scalp: There is a 4 cm area of trace fluctuance, no crepitus, erythema and a central 2-mm opening with some purulent drainage, I cannot express more. It is tender. There is no crepitu s. Erythema extends to the orbit where there is no edema or change in extraocular motion. Heart has regular rate and rhythm without murmurs , rubs or gallops. Lungs: Clear to auscultation bilaterall y. Abdomen: Soft, nontender, and nondistended. There are bowel sounds present. Skin: There is no rash or splinter hemorrhages. Musculoskeletal: There is no spine tenderness to palpation. DIAGNOSTIC STUDIES/LAB DATA: White blood cell count 7, hemoglobin 12, platelets 147. Creatinine 0.3 , CRP 250. Hemoglobin A1c result was 13.7. Please see impressions and recommendations as outlined ab faiza, which I have discussed with Dr. Royal. Thanks for asking me to see Mr. Ogden in consultation. [id number]/[facility] #: [id number]
[2018-01-17] MEDS: traMADol TAB* 50 MG PO PRN (16:36)
[2018-01-17] MEDS: glipiZIDE TAB* 5 MG PO SCH (16:37)
[2018-01-17] MEDS: Insulin GLARGINE(*) 1 UNITS UNIT SUBCUT SCH (17:53)
[2018-01-18] MEDS: Oxacillin(*) 2 GM in NS 0.9% 100 ML* 100 ML IVPB SCH ×6 (02:17→21:29)
[2018-01-18] MEDS: oxyCODONE TAB* 5 MG TAB PO PRN ×5 (02:57→21:11)
[2018-01-18] MEDS: Heparin VIAL(*) 5000 UNITS/ML VIAL (FIVE THOUSAND) SUBCUT SCH ×3 (06:06→21:13)
[2018-01-18] MEDS: HYDROmorphone INJ* 1 MG/ML CARPUJECT SYRINGE IV PRN ×2 (06:21→23:09)
[2018-01-18 06:24] LABS: ABS Basophils 0.1 10^3/ul (0-0.2); ABS Eosinophils 0.2 10^3/ul (0-0.6); ABS Lymphocytes 1.3 10^3/ul (1.0-4.8); ABS Monocytes 0.9 10^3/ul (0-0.8); ABS Neutrophils 4.3 10^3/ul (1.5-7.7); ABS Nucleated RBC 0 10^3/ul; Eosinophil % 2.7 % (0-6); Hematocrit 35 % (42-52); Hemoglobin 12.4 g/dl (14.0-18.0); Lymphocyte % 19.6 % (25-47); Mean Corpuscular HGB Conc 36 g/dl (31-36); Mean Corpuscular Hemoglobin 32 pg (27-31); Mean Corpuscular Volume 89 fL (80-94); Mean Platelet Volume 9 um3 (7.4-10.4); Nucleated Red Blood Cells % 0; Platelet Count 167 10^3/ul (150-450); Red Cell Distribution Width 13 % (10.5-15); White Blood Count 6.8 10^3/ul (3.5-10.8)
[2018-01-18] MEDS: Insulin LISPRO* 1 UNITS UNIT SUBCUT SCH ×4 (07:57→20:52)
[2018-01-18] MEDS: Acetaminophen TAB* 325 MG PO PRN ×2 (08:01→16:36)
[2018-01-18] MEDS: Aspirin EC Low Dose* 81 MG TAB.EC PO SCH (08:01)
[2018-01-18] MEDS: Cholecalciferol TAB* 1000 UNITS PO SCH (08:01)
[2018-01-18] MEDS: glipiZIDE TAB* 5 MG PO SCH ×2 (08:01→16:34)
[2018-01-18] MEDS: Polyethylene Glycol 3350* 17 GM PACKET PO SCH ×2 (08:04→21:13)
[2018-01-18] MEDS: traMADol TAB* 50 MG PO PRN ×2 (11:49→19:52)
[2018-01-18] MEDS: Senna TAB PO SCH (11:49)
[2018-01-18] MEDS: NS 0.9% 1000 ML* 1,000 ML IV SCH ×2 (11:49→23:17)
--- NOTE | 2018-01-18 15:23 | PN ---
Subjective Date of Service: 01/18/18 Interval History: Patient with "9/10" pain near head. Stopped lantus (and other injectables?) about 4 months ago when thought they were causing him increased joint pain and swelling in legs and light headedness (even with BG in 300s. Now just metformin. glucoses still in 300s. RA pain mostly in toes, hands, knees. stanton-sensitive MSSA from I/D Family History: Unchanged from Admission Social History: Unchanged from Admission Past Medical History: Unchanged from Admission Objective Active Medications: Acetaminophen (Tylenol Tab*) 650 mg PO Q6H PRN PRN Reason: FEVER/PAIN Last Admin: 01/18/18 08:01 Dose: 650 mg Albuterol (Ventolin 2.5 Mg/3 Ml Neb.Perla*) 2.5 mg INH Q2H PRN PRN Reason: SOB/WHEEZING Aspirin (Aspirin Ec Low Dose*) 81 mg PO DAILY [facility] Last Admin: 01/18/18 08:01 Dose: 81 mg Cholecalciferol (Vitamin D Tab*) 1,000 units PO DAILY [facility] Last Admin: 01/18/18 08:01 Dose: 1,000 units Glipizide (Glucotrol Tab*) 5 mg PO BID WITH MEALS [facility] Last Admin: 01/18/18 08:01 Dose: 5 mg Heparin Sodium (Porcine) (Heparin Vial(*)) 5,000 units SUBCUT Q8HR [facility] Last Admin: 01/18/18 14:21 Dose: 5,000 units Hydromorphone HCl (Dilaudid Injic*) 0.5 mg IV Q4H PRN PRN Reason: PAIN Last Admin: 01/18/18 06:21 Dose: 0.5 mg Sodium Chloride (Ns 0.9% 1000 Ml*) 1,000 mls @ 100 mls/hr IV PER RATE [facility] Last Admin: 01/18/18 11:49 Dose: 100 mls/hr Oxacillin Sodium 2 gm/ Sodium (Chloride) 100 mls @ 200 mls/hr IVPB Q4H [facility] Last Admin: 01/18/18 14:21 Dose: 200 mls/hr Insulin Glargine (Lantus(*)) 20 units SUBCUT Q24H [facility] Insulin Human Lispro (Humalog*) 0 units SUBCUT ACHS [facility] PRN Reason: Protocol Last Admin: 01/18/18 11:52 Dose: 1 units Magnesium Hydroxide (Milk Of Magnvane Liq*) 60 ml PO DAILY PRN PRN Reason: CONSTIPATION Ondansetron HCl (Zofran Inj*) 4 mg IV Q6H PRN PRN Reason: NAUSEA Oxycodone HCl (Roxycodone Tab*) 5 mg PO Q4H PRN PRN Reason: PAIN Last Admin: 01/18/18 11:49 Dose: 5 mg Polyethylene Glycol/Electrolytes (Miralax*) 17 gm PO BID [facility] Last Admin: 01/18/18 08:04 Dose: 17 gm Senna (Senokot Tab*) 1 tab PO DAILY [facility] Last Admin: 01/18/18 11:49 Dose: 1 tab Tramadol HCl (Ultram*) 50 mg PO Q6H PRN PRN Reason: PAIN Last Admin: 01/18/18 11:49 Dose: 50 mg Vital Signs - 8 hr 01/18/18 01/18/18 01/18/18 07:43 07:57 08:00 Temperature 97.7 F Pulse Rate 93 Respiratory 18 18 18 Rate Blood Pressure 129/77 (mmHg) O2 Sat by Pulse 95 Oximetry 01/18/18 01/18/18 01/18/18 08:01 09:47 11:37 Temperature 97.5 F Pulse Rate 95 Respiratory 18 16 20 Rate Blood Pressure 131/78 (mmHg) O2 Sat by Pulse 99 Oximetry 01/18/18 01/18/18 11:49 14:11 Temperature Pulse Rate Respiratory 18 18 Rate Blood Pressure (mmHg) O2 Sat by Pulse Oximetry Oxygen Devices in Use Now: None Appearance: NAD Eyes: No Scleral Icterus, PERRLA Ears/Nose/Mouth/Throat: NL Teeth, Lips, Gums, Mucous Membranes Moist Neck: NL Appearance and Movements; NL JVP Respiratory: Symmetrical Chest Expansion and Respiratory Effort, Clear to Auscultation Cardiovascular: NL Sounds; No Murmurs; No JVD Extremities: No Edema Skin: - - erythema and some induration left buddhism w/o fluctuance. Neurological: Alert and Oriented x 3, NL Sensation, NL Muscle Strength and Tone Nutrition: Taking PO's Result Diagrams: 01/18/18 06:10 01/17/18 06:30 Additional Lab and Data: Laboratory Results - last 24 hr 01/17/18 01/17/18 01/18/18 16:15 20:34 06:10 WBC 6.8 RBC 3.90 L Hgb 12.4 L Hct 35 L MCV 89 MCH 32 H MCHC 36 RDW 13 Plt Count 167 MPV 9 Neut % (Auto) 63.6 Lymph % (Auto) 19.6 L [place] % (Auto) 12.8 H Eos % (Auto) 2.7 Baso % (Auto) 1.3 Absolute Neuts (auto) 4.3 Absolute Lymphs (auto) 1.3 Absolute Monos (auto) 0.9 H Absolute Eos (auto) 0.2 Absolute Basos (auto) 0.1 Absolute Nucleated RBC 0 Nucleated RBC % 0 POC Glucose (mg/dL) 221 H 186 H 01/18/18 01/18/18 07:35 11:18 WBC RBC Hgb Hct MCV MCH MCHC RDW Plt Count MPV Neut % (Auto) Lymph % (Auto) [place] % (Auto) Eos % (Auto) Baso % (Auto) Absolute Neuts (auto) Absolute Lymphs (auto) Absolute Monos (auto) Absolute Eos (auto) Absolute Basos (auto) Absolute Nucleated RBC Nucleated RBC % POC Glucose (mg/dL) 117 H 133 H Microbiology and Other Data: Microbiology 01/15/18 22:02 Scalp Skin and Soft Tissue MRSA/MSSA (PCR - Final Mrsa Negative S.aureus Positive 01/15/18 22:02 Scalp Gram Stain - Final 01/15/18 22:02 Scalp Wound Culture - Final Staphylococcus Aureus Normal Donita 01/15/18 19:21 Blood Venous Aerobic Blood Culture - Preliminary No Growth Day 2 01/15/18 19:21 Blood Venous Anaerobic Blood Culture - Preliminary No Growth Day 2 01/15/18 18:20 Blood Venous Aerobic Blood Culture - Preliminary No Growth Day 2 01/15/18 18:20 Blood Venous Anaerobic Blood Culture - Preliminary No Growth Day 2 Assess/Plan/Problems-Billing . Assessment: 57 y.o. M with h/o RA and poorly controlled DM2 (stopped insulin 4 months ago, A1C 13.7) , now with head injury after board fell onto, infected scalp hematoma with abscess and surrounding cellulitis. MSSA (stanton sensitive, improving on oxacillin. Planned clinda for 10 more days. Initially with sepsis(HR 140, - Patient Problems (1) Scalp abscess Current Visit: Yes Status: Acute Code(s): L02.811 - CUTANEOUS ABSCESS OF HEAD [ANY PART, EXCEPT FACE] SNOMED Code(s): 94517783 Comment: Slowly improving, drained in ED. No fluctuance to suggest more ID needed currently. appreciate ID recs. Continue oxacillin today with plan for 10 more days of oral clindamycin starting tomorrow. C&S grew MSSA stanton sensitive. risk factors of uncontrolled diabetes and Enbrel use. (2) Diabetes Current Visit: Yes Status: Acute Code(s): E11.9 - TYPE 2 DIABETES MELLITUS WITHOUT COMPLICATIONS SNOMED Code(s): 80227078 Comment: Lantus increased to 18U from 15U. Better control today. Continue Lispro SSI and FSGS qachs. Takes only metformin at home now. A1C 13.7 diabetes education ordered. BG >500 with small anion gap on admission. (3) Rheumatoid arthritis Current Visit: Yes Status: Acute Code(s): M06.9 - RHEUMATOID ARTHRITIS, UNSPECIFIED SNOMED Code(s): 77964127 Comment: On enbrel at home, held now in setting of infection. Status and Disposition: medicine inpatient, likely discharge 01/19.
[2018-01-18] MEDS ORDERED: Insulin GLARGINE(*) 1 UNITS UNIT SUBCUT SCH ×2 (16:00)
--- NOTE | 2018-01-18 16:39 | PN ---
Progress Note - Progress Note Date of Service: 01/18/18 SOAP: Subjective: CC: scalp abscess HPI: 57 year old man with injury to left scalp now with abscess and cellulitis. Pain and swelling improved, redness receding. Otherwise feels well. No fever , rash, or diarrhea. Objective: Vital Signs Temp 36.6 C 01/18/18 15:27 Pulse 94 01/18/18 15:27 Resp 20 01/18/18 15:27 BP 124/76 01/18/18 15:27 Pulse Ox 95 01/18/18 15:27 Intake & Output 01/17/18 01/18/18 01/18/18 18:59 06:59 18:59 Intake Total 3116 1407 1390 Output Total 0 Balance 3116 1407 1390 Intake: IV Fluids 1196 1407 All 1196 343 NS (0.9%) 1064 Oral 1920 0 1390 Output: Urine 0 Other: Estimated Void Medium # Bowel Movements 0 # Voids 4 Gen:awake, no distress HEENT:no thrush; L parietal scalp there is a patch of erythema w underlying induration Heart:RRR no murmur Lungs:CTA BL Abd:+BS NTND soft Skin: no rash Laboratory Results - last 24 hr 01/17/18 01/17/18 01/18/18 16:15 20:34 06:10 WBC 6.8 RBC 3.90 L Hgb 12.4 L Hct 35 L MCV 89 MCH 32 H MCHC 36 RDW 13 Plt Count 167 MPV 9 Neut % (Auto) 63.6 Lymph % (Auto) 19.6 L [place] % (Auto) 12.8 H Eos % (Auto) 2.7 Baso % (Auto) 1.3 Absolute Neuts (auto) 4.3 Absolute Lymphs (auto) 1.3 Absolute Monos (auto) 0.9 H Absolute Eos (auto) 0.2 Absolute Basos (auto) 0.1 Absolute Nucleated RBC 0 Nucleated RBC % 0 POC Glucose (mg/dL) 221 H 186 H 01/18/18 01/18/18 07:35 11:18 WBC RBC Hgb Hct MCV MCH MCHC RDW Plt Count MPV Neut % (Auto) Lymph % (Auto) [place] % (Auto) Eos % (Auto) Baso % (Auto) Absolute Neuts (auto) Absolute Lymphs (auto) Absolute Monos (auto) Absolute Eos (auto) Absolute Basos (auto) Absolute Nucleated RBC Nucleated RBC % POC Glucose (mg/dL) 117 H 133 H Assessment: 1. MSSA abscess and cellulitis left scalp, much improved 2. RA on enbrel 3. diabetes, T2 Plan: 1. continue oxacillin, change to clindamycin 300 mg po tid x10 more days on 01/19 ; fu with me 1 week
[2018-01-19] MEDS: oxyCODONE TAB* 5 MG TAB PO PRN ×2 (02:42→09:11)
[2018-01-19] MEDS: Acetaminophen TAB* 325 MG PO PRN (02:42)
[2018-01-19] MEDS: Oxacillin(*) 2 GM in NS 0.9% 100 ML* 100 ML IVPB SCH ×3 (03:55→10:54)
[2018-01-19] MEDS: Heparin VIAL(*) 5000 UNITS/ML VIAL (FIVE THOUSAND) SUBCUT SCH (05:21)
[2018-01-19] MEDS: Insulin LISPRO* 1 UNITS UNIT SUBCUT SCH (07:45)
[2018-01-19 08:05] VITALS: BP 131/85
[2018-01-19] MEDS: Aspirin EC Low Dose* 81 MG TAB.EC PO SCH (08:49)
[2018-01-19] MEDS: Cholecalciferol TAB* 1000 UNITS PO SCH (08:49)
[2018-01-19] MEDS: glipiZIDE TAB* 5 MG PO SCH (08:49)
[2018-01-19] MEDS: Polyethylene Glycol 3350* 17 GM PACKET PO SCH (08:50)
[2018-01-19] MEDS: Senna TAB PO SCH (08:50)
--- NOTE | 2018-01-19 23:22 | DS ---
DISCHARGE SUMMARY: DATE OF ADMISSION: 01/15/18 DATE OF DISCHARGE: 01/19/18 PRIMARY CARE PROVIDER: Soni Vega NP ADMITTING PHYSICIAN: Marlon Galo MD CONSULTING INFECTIOUS DISEASE: Russel Myers MD CHIEF COMPLAINT: Swelling, redness, and pain at left samaritan after a board fell on top of him. PRINCIPAL DIAGNOSIS: MSSA abscess in the setting of uncontrolled diabetes and mechanical trauma. HISTORY OF PRESENT ILLNESS AND HOSPITAL COURSE: Aris Ogden is a 57-year-old male with past medical history diabetes mellitus, formally on insulin, took himself off approximately 4 months ago as he did not like side effects who presents after a board fell when he was staying in his barn striking him in the left samaritan. He developed an abscess, erythema, looked like swelling, pain, fevers and chills. His initial heart rate was 140. He had leukocytosis at 12.8 meeting a SIRS bacteria. He was noted to have blood glucose of 546 with the small anion gap of 13, CRP of 248. He was initially started on vancomycin and cefepime. Infectious Disease consultation occurred the next day and his abscess had been I and D in the emergency room, eventually grew MSSA, which was pansensitive. His blood cultures were negative x3 days. He was switched to oxacillin every 4 hours and had improvement in erythema, swelling. He did require opioid pain medications to control his pain. He was also found to have an A1c of 13.7 and to control his blood sugars, he was started on Lantus in the hospital, first 15 and then 18 units a day which achieved good results with blood sugars between 104 and 181 on day prior to discharge. The patient was adamant that he would refuse any Lantus or insulin upon discharge at he thinks it gives him side effects as an outpatient. He is being discharged to follow up with Dr. Russel Myers within 7 days of discharge and additional 10 days of clindamycin 300 mg t.i.d. He is also encouraged to see his primary care doctor to discuss further management of his uncontrolled diabetes. He would not give a local pharmacy to refill his meds, so [id number] program at [facility] was initiated. DISCHARGE MEDICATIONS: Include: 1. Tylenol 650 mg p.o. q.6 hours p.r.n. for fever and pain. 2. Aspirin 81 mg daily. 3. Cholecalciferol 1000 units p.o. daily. 4. Glipizide 5 mg p.o. b.i.d. 5. Senna 1 tab daily. 6. Sodium chloride nasal spray 1 to 2 sprays nasal t.i.d. 7. Polyethylene glycol 17 g p.o. b.i.d. (new). 8. Oxycodone 5 mg p.o. q.4 hours p.r.n. (new for 28 tabs). 9. Ibuprofen 600 mg p.o. q.6 hours. 10. Clindamycin 300 mg p.o. t.i.d. for 10 days. The patient refused suggestion of Lantus prescription. DISCHARGE DIET: Heart healthy, carbohydrate consistent. ACTIVITY LEVEL: No restrictions. FOLLOWUP: Please follow up with Soni Vega, primary care provider, within [address] Casimiro Myers within 7 days of discharge. TIME SPENT ON DISCHARGE: 35 minutes. [id number]/[facility] #: [id number] MCKENNA
== END 2018-01-19 11:50 | disposition home or self-care (01) | DRG 872 ==
LOC: ED 17:39 → MED 22:29
PROVIDERS: ADMIT Hospitalist; ATTEND Internal Medicine
PROC: 0H90XZX Drainage of Scalp Skin, External Approach, Diagnostic (ICD-10-PCS; principal; 2018-01-15)
DX: A41.9 Sepsis, unspecified organism (principal); E11.36 Type 2 diabetes mellitus with diabetic cataract; L03.811 Cellulitis of head [any part, except face]; L02.811 Cutaneous abscess of head [any part, except face]; E11.65 Type 2 diabetes mellitus with hyperglycemia; H02.846 Edema of left eye, unspecified eyelid; J44.9 Chronic obstructive pulmonary disease, unspecified; M06.9 Rheumatoid arthritis, unspecified; H54.62 Unqualified visual loss, left eye, normal vision right eye; B95.61 Methicillin susceptible Staphylococcus aureus infection as the cause of diseases classified elsewhere; S00.03XA Contusion of scalp, initial encounter; S00.01XA Abrasion of scalp, initial encounter; W20.8XXA Other cause of strike by thrown, projected or falling object, initial encounter; Z88.8 Allergy status to other drugs, medicaments and biological substances; Y92.009 Unspecified place in unspecified non-institutional (private) residence as the place of occurrence of the external cause; Z98.42 Cataract extraction status, left eye; Z82.49 Family history of ischemic heart disease and other diseases of the circulatory system; Z87.891 Personal history of nicotine dependence; Z79.82 Long term (current) use of aspirin; Z79.84 Long term (current) use of oral hypoglycemic drugs
CPT/HCPCS: 36415; 70450; 70481; 71045; 80048; 80053; 81003; 81015; 82550; 82565; 82803; 83036; 83605; 83880; 84484; 84520; 85025; 85610; 85652; 85730; 86140; 87040; 87070; 87077; 87186; 87205; 87640; 87641; 90715; 93005; 99284; A9270-GY; J0692; J1170; J1644; J2543; J2700; J3370; Q9967

== ENCOUNTER 2018-03-12 00:44 | Observation (INO) | payer OTHER ==
[2018-03-12 02:31] LABS: ABS Basophils 0.1 10^3/ul (0-0.2); ABS Eosinophils 0.2 10^3/ul (0-0.6); ABS Lymphocytes 2.1 10^3/ul (1.0-4.8); ABS Monocytes 0.6 10^3/ul (0-0.8); ABS Neutrophils 3.3 10^3/ul (1.5-7.7); ABS Nucleated RBC 0 10^3/ul; Eosinophil % 2.5 % (0-6); Hematocrit 39 % (42-52); Hemoglobin 13.4 g/dl (14.0-18.0); Lymphocyte % 33.8 % (25-47); Mean Corpuscular HGB Conc 34 g/dl (31-36); Mean Corpuscular Hemoglobin 31 pg (27-31); Mean Corpuscular Volume 91 fL (80-94); Mean Platelet Volume 8.5 um3 (7.4-10.4); Nucleated Red Blood Cells % 0.1; Platelet Count 216 10^3/ul (150-450); Red Blood Count 4.31 10^6/ul (4.0-5.4); Red Cell Distribution Width 13 % (10.5-15); White Blood Count 6.2 10^3/ul (3.5-10.8)
[2018-03-12 02:31] LABS: Urine Appearance Clear; Urine Blood Negative (Negative); Urine Color Yellow; Urine Ketones Negative (Negative); Urine Protein Negative (Negative); Urine Urobilinogen Negative (Negative)
[2018-03-12 02:47] LABS: EGFR Non-African American 138.4 (>60)
[2018-03-12] MEDS ORDERED: Iodixanol* (CONTRAST) 320 MG/ML 100 ML SDV IV ONE (02:52)
--- NOTE | 2018-03-12 02:56 | ED ---
Respiratory - HPI Summary HPI Summary: C/O BILAT UPPER ABDO PAIN AND BLOATING, SOB WHEN SITTING OR LYING DOWN X 2 DAYS. DENIES FEVER, COUGH, SORE THROAT, CP, N/V/D, CHNAGE IN URINE OR BM. MED HX = DM, RA. DENIES CARDIAC OR PULMONARY HX. STARTED SAXAGLIPTIN 2 WEEKS AGO FOR DM AND PT THINKS THIS MAY BE REACTION TO MED. - History of Current Complaint Chief Complaint: EDAbdPain Stated Complaint: ABD PAIN Time Seen by Provider: 03/12/18 01:55 Hx Obtained From: Patient Onset/Duration: Gradual Onset Timing: Constant Initial Severity: Moderate Current Severity: Moderate Pain Intensity: 8 Aggravating Factor(s): Movement, Recumbent Position Alleviating Factor(s): Rest Associated Signs and Symptoms: SOB - Risk Factors Cardiac Risk Factors: Diabetes - Allergy/Home Medications Allergies/Adverse Reactions: Allergies Allergy/AdvReac Type Severity Reaction Status Date / Time prednisone Allergy See Comment Verified 03/12/18 00:55 Home Medications: Home Medications Insulin GLARGINE(*) [Lantus(*)] 20 units SUBCUT Q12H 03/12/18 [History Confirmed 03/12/18] metFORMIN* [Glucophage 500 MG TAB *] 500 mg PO BID 03/12/18 [History Confirmed 03/12/18] PMH/Surg Hx/FS Hx/Imm Hx Endocrine/Hematology History: Reports: Hx Diabetes Cardiovascular History: Denies: Hx Hypertension Respiratory History: Reports: Hx Chronic Obstructive Pulmonary Disease (COPD) History: Denies: Hx Renal Disease Musculoskeletal History: Reports: Hx Arthritis, Hx Rheumatoid Arthritis Sensory History: Reports: Hx Cataracts - resulted in loss of vision in left eye , Hx Contacts or Glasses Denies: Hx Hearing Aid Opthamlomology History: Reports: Hx Cataracts - resulted in loss of vision in left eye, Hx Contacts or Glasses - Surgical History Surgery Procedure, Year, and Place: None - Immunization History Immunizations Up to Date: Yes Infectious Disease History: No Infectious Disease History: Denies: Traveled Outside the [place] in Last 30 Days - Family History Known Family History: Positive: Other - Pt denies knowledge of relevant family history Negative: Cardiac Disease, Diabetes - Social History Alcohol Use: None Hx Substance Use: No Substance Use Type: Reports: None Hx Tobacco Use: No Smoking Status (MU): Never Smoked Tobacco Review of Systems Constitutional: Negative Eyes: Negative ENT: Negative Cardiovascular: Negative Positive: Shortness Of Breath Positive: Abdominal Pain Genitourinary: Negative Musculoskeletal: Negative Skin: Negative Neurological: Negative Psychological: Normal All Other Systems Reviewed And Are Negative: Yes Physical Exam Triage Information Reviewed: Yes Vital Signs On Initial Exam: Initial Vitals Temp Pulse Resp BP Pulse Ox 98.2 F 107 16 133/90 94 03/12/18 00:52 03/12/18 00:52 03/12/18 00:52 03/12/18 00:52 03/12/18 00:52 Vital Signs Reviewed: Yes Appearance: Positive: Well-Appearing Skin: Positive: Warm Head/Face: Positive: Normal Head/Face Inspection Eyes: Positive: Normal Neck: Positive: Supple Respiratory/Lung Sounds: Positive: Clear to Auscultation Cardiovascular: Positive: Normal Abdomen Description: Positive: Other: - TENDER UPPER ABDO BILATERALLY Musculoskeletal: Positive: Normal Psychiatric: Positive: Normal - [place] Coma Scale Best Eye Response: 4 - Spontaneous Best Motor Response: 6 - Obeys Commands Best Verbal Response: 5 - Oriented Coma Scale Total: 15 Diagnostics - Vital Signs Vital Signs Temp Pulse Resp BP Pulse Ox 03/12/18 00:52 98.2 F 107 16 133/90 94 - Laboratory Lab Results: Lab Results 03/12/18 03/12/18 03/12/18 Range/Units 02:15 02:20 02:20 WBC 6.2 (3.5-10.8) 10^3/ul RBC 4.31 (4.0-5.4) 10^6/ul Hgb 13.4 L (14.0-18.0) g/dl Hct 39 L (42-52) % MCV 91 (80-94) fL MCH 31 (27-31) pg MCHC 34 (31-36) g/dl RDW 13 (10.5-15) % Plt Count 216 (150-450) 10^3/ul MPV 8.5 (7.4-10.4) um3 Neut % (Auto) 52.8 (38-83) % Lymph % (Auto) 33.8 (25-47) % [place] % (Auto) 9.3 H (0-7) % Eos % (Auto) 2.5 (0-6) % Baso % (Auto) 1.6 (0-2) % Absolute Neuts (auto) 3.3 (1.5-7.7) 10^3/ul Absolute Lymphs (auto) 2.1 (1.0-4.8) 10^3/ul Absolute Monos (auto) 0.6 (0-0.8) 10^3/ul Absolute Eos (auto) 0.2 (0-0.6) 10^3/ul Absolute Basos (auto) 0.1 (0-0.2) 10^3/ul Absolute Nucleated RBC 0 10^3/ul Nucleated RBC % 0.1 Sodium 139 (139-145) mmol/L Potassium 4.6 (3.5-5.0) mmol/L Chloride 105 (101-111) mmol/L Carbon Dioxide 28 (22-32) mmol/L Anion Gap 6 (2-11) mmol/L BUN 14 (6-24) mg/dL Creatinine 0.60 L (0.67-1.17) mg/dL Est GFR ( Amer) 178.0 (>60) Est GFR (Non-Af Amer) 138.4 (>60) BUN/Creatinine Ratio 23.3 H (8-20) Glucose 184 H (70-100) mg/dL Lactic Acid (0.5-2.0) mmol/L Calcium 9.4 (8.6-10.3) mg/dL Total Bilirubin 0.50 (0.2-1.0) mg/dL AST 12 L (13-39) U/L ALT 9 (7-52) U/L Alkaline Phosphatase 49 (34-104) U/L Total Protein 6.8 (6.4-8.9) g/dL Albumin 3.9 (3.2-5.2) g/dL Globulin 2.9 (2-4) g/dL Albumin/Globulin Ratio 1.3 (1-3) Lipase 13 (11.0-82.0) U/L Urine Color Yellow Urine Appearance Clear Urine pH 5.0 (5-9) Ur Specific Stevenson 1.020 (1.010-1.030) Urine Protein Negative (Negative) Urine Ketones Negative (Negative) Urine Blood Negative (Negative) Urine Nitrate Negative (Negative) Urine Bilirubin Negative (Negative) Urine Urobilinogen Negative (Negative) Ur Leukocyte Esterase Negative (Negative) Urine Glucose 3+(>=500 mg/dl) A (Negative) 03/12/18 Range/Units 02:20 WBC (3.5-10.8) 10^3/ul RBC (4.0-5.4) 10^6/ul Hgb (14.0-18.0) g/dl Hct (42-52) % MCV (80-94) fL MCH (27-31) pg MCHC (31-36) g/dl RDW (10.5-15) % Plt Count (150-450) 10^3/ul MPV (7.4-10.4) um3 Neut % (Auto) (38-83) % Lymph % (Auto) (25-47) % [place] % (Auto) (0-7) % Eos % (Auto) (0-6) % Baso % (Auto) (0-2) % Absolute Neuts (auto) (1.5-7.7) 10^3/ul Absolute Lymphs (auto) (1.0-4.8) 10^3/ul Absolute Monos (auto) (0-0.8) 10^3/ul Absolute Eos (auto) (0-0.6) 10^3/ul Absolute Basos (auto) (0-0.2) 10^3/ul Absolute Nucleated RBC 10^3/ul Nucleated RBC % Sodium (139-145) mmol/L Potassium (3.5-5.0) mmol/L Chloride (101-111) mmol/L Carbon Dioxide (22-32) mmol/L Anion Gap (2-11) mmol/L BUN (6-24) mg/dL Creatinine (0.67-1.17) mg/dL Est GFR ( Amer) (>60) Est GFR (Non-Af Amer) (>60) BUN/Creatinine Ratio (8-20) Glucose (70-100) mg/dL Lactic Acid 0.8 (0.5-2.0) mmol/L Calcium (8.6-10.3) mg/dL Total Bilirubin (0.2-1.0) mg/dL AST (13-39) U/L ALT (7-52) U/L Alkaline Phosphatase (34-104) U/L Total Protein (6.4-8.9) g/dL Albumin (3.2-5.2) g/dL Globulin (2-4) g/dL Albumin/Globulin Ratio (1-3) Lipase (11.0-82.0) U/L Urine Color Urine Appearance Urine pH (5-9) Ur Specific Stevenson (1.010-1.030) Urine Protein (Negative) Urine Ketones (Negative) Urine Blood (Negative) Urine Nitrate (Negative) Urine Bilirubin (Negative) Urine Urobilinogen (Negative) Ur Leukocyte Esterase (Negative) Urine Glucose (Negative) Result Diagrams: 03/12/18 02:20 04 02:20 Lab Statement: Any lab studies that have been ordered have been reviewed, and results considered in the medical decision making process. - EKG 1 Cardiac Rate: Tachycardia EKG Rhythm: Sinus Tachycardia ST Segment: Normal Ectopy: None EKG Comparison: No Significant Change Re-Evaluation - Re-Evaluation N Re-Evaluation Time: 03:48 Comment: PT CARE ENDORSED TO DR AMN AT THIS TIME Disposition - Diagnoses Provider Diagnoses: Pneumonia, Pleural effusion Discharge - Sign-Out/Discharge Documenting (check all that apply): Discharge - Discharge Plan Condition: Stable Disposition: ADMITTED TO [facility] - Billing Disposition and Condition Condition: STABLE Disposition: [facility] [place]
[2018-03-12] MEDS ORDERED: NS 0.9% 1000 ML* 1,000 ML IV ONE (07:06)
[2018-03-12] MEDS ORDERED: Levofloxacin 750 MG IVPREMIX(* 750 MG/150 ML BAG IVPB ONE (07:07)
[2018-03-12] MEDS ORDERED: Furosemide IV* 10 MG/ML VIAL (40 MG) IV ONE (07:57)
[2018-03-12] MEDS ORDERED: Dextrose 50% Syringe 50 ML* 25 GM/50 ML SYRINGE IV PUSH PRN (07:58)
--- NOTE | 2018-03-12 08:11 | ADMNOTE ---
Subjective Date of Service: 03/12/18 Interval History: ADMISSION HISTORY AND PHYSICAL EXAM: Allergies Allergy/AdvReac Type Severity Reaction Status Date / Time prednisone Allergy See Comment Verified 03/12/18 00:55 Home Medications Medication Instructions Recorded Confirmed Type Acetaminophen TAB* [Tylenol TAB*] 650 mg PO Q6H PRN #30 tab 01/19/18 03/12/18 Rx Insulin GLARGINE(*) [Lantus(*)] 20 units SUBCUT Q12H 03/12/18 03/12/18 History metFORMIN* [Glucophage 500 MG TAB 500 mg PO BID 03/12/18 03/12/18 History *] HPI: The patient c/o SOB for 2 days, marked orthopnea. No cough. Burning pain across lower chest is constant. No palpitations, lightheadedness. He was recently started on saxigliptin. Family History: Findings - Estranged from his father. Mother of CAD in her 60's/. Social History: Findings - Former smoker. Single, no children. Self-employed. He has no SDM, cannot identify a friend or relative he would want to be his SDM. Past Medical History: Findings - RA on Embrel. DM. Scalp abcess 12/2017. Review of Systems - Measurements Intake and Output: Intake and Output Last 24 Hours 03/10/18 03/11/18 03/12/18 03/13/18 06:59 06:59 06:59 06:59 Weight 215 lb - Review of Systems Constitutional Symptoms: Negative: Weight Gain, Weight Loss, Weakness, Fatigue, Fever, Night Sweats, Unexplained Falls, Other Dermatology: Positive: Normal HEENT: Positive: Normal Eyes: Positive: Normal Thyroid: Positive: Normal Pulmonary: Positive: Shortness of Breath Cardiology: Positive: Chest Pain - burning feeling across lower chest, constant for 2 days Genital - Urinary: Positive: Normal Genitourinary - Male: Negative: Prostatism, Erectile Dysfunction, Family Hx of Prostate Cancer, Other Musculoskeletal: Positive: Other - RA Endocrinology: Positive: Diabetes Mellitus Hematologic/Lymphatic: Positive: Anemia Neurology: Positive: Normal Psychiatry: Positive: Normal Allergic/Immunologic: Negative: Hx Anaphylaxis, Hx Angioedema, Hx Environmental, Hx Seasonal, Athsma, Hx HIV, Immunocompromise, Swollen Glands LymphNodes, Other Objective Active Medications: Acetaminophen (Tylenol Tab*) 650 mg PO Q6H PRN PRN Reason: FEVER/PAIN Dextrose (D50w Syringe 50 Ml*) 12.5 gm IV PUSH .FOR FS < 60 - SS PRN PRN Reason: FS < 60 Enoxaparin Sodium (Lovenox(*)) 40 mg SUBCUT Q24H MEE Levofloxacin/Dextrose (Levaquin 750 Mg Ivpremix(*)) 750 mg in 150 mls @ 100 mls /hr IVPB ONCE ONE Stop: 03/12/18 08:36 Last Admin: 03/12/18 07:25 Dose: 100 mls/hr Insulin Glargine (Lantus(*)) 20 units SUBCUT Q12H MEE Insulin Human Lispro (Humalog*) 0 units SUBCUT ACHS MEE PRN Reason: Protocol Lisinopril (Prinivil Tab*) 5 mg PO DAILY [facility] Vital Signs - 8 hr 03/12/18 03/12/18 00:52 06:34 Temperature 98.2 F Pulse Rate 107 107 Respiratory 16 Rate Blood Pressure 133/90 130/85 (mmHg) O2 Sat by Pulse 94 92 Oximetry Oxygen Devices in Use Now: None Appearance: Alert, partly up on ED stretcher. In good spirits. Looks comfortable. Eyes: No Scleral Icterus Respiratory: Symmetrical Chest Expansion and Respiratory Effort, - - dull BL bases, diminished BS BL bases Cardiovascular: RRR, No Edema, - - JVD at 90 degrees Extremities: No Edema, No Clubbing, Cyanosis, - Skin: No Rash or Ulcers, No Nodules or Sclerosis, - Neurological: Alert and Oriented x 3, NL Sensation Result Diagrams: 03/12/18 02:20 03/12/18 02:20 Additional Lab and Data: Lab Results 03/12/18 03/12/18 03/12/18 Range/Units 02:15 02:20 02:20 WBC 6.2 (3.5-10.8) 10^3/ul RBC 4.31 (4.0-5.4) 10^6/ul Hgb 13.4 L (14.0-18.0) g/dl Hct 39 L (42-52) % MCV 91 (80-94) fL MCH 31 (27-31) pg MCHC 34 (31-36) g/dl RDW 13 (10.5-15) % Plt Count 216 (150-450) 10^3/ul MPV 8.5 (7.4-10.4) um3 Neut % (Auto) 52.8 (38-83) % Lymph % (Auto) 33.8 (25-47) % [place] % (Auto) 9.3 H (0-7) % Eos % (Auto) 2.5 (0-6) % Baso % (Auto) 1.6 (0-2) % Absolute Neuts (auto) 3.3 (1.5-7.7) 10^3/ul Absolute Lymphs (auto) 2.1 (1.0-4.8) 10^3/ul Absolute Monos (auto) 0.6 (0-0.8) 10^3/ul Absolute Eos (auto) 0.2 (0-0.6) 10^3/ul Absolute Basos (auto) 0.1 (0-0.2) 10^3/ul Absolute Nucleated RBC 0 10^3/ul Nucleated RBC % 0.1 Sodium 139 (139-145) mmol/L Potassium 4.6 (3.5-5.0) mmol/L Chloride 105 (101-111) mmol/L Carbon Dioxide 28 (22-32) mmol/L Anion Gap 6 (2-11) mmol/L BUN 14 (6-24) mg/dL Creatinine 0.60 L (0.67-1.17) mg/dL Est GFR ( Amer) 178.0 (>60) Est GFR (Non-Af Amer) 138.4 (>60) BUN/Creatinine Ratio 23.3 H (8-20) Glucose 184 H (70-100) mg/dL Lactic Acid (0.5-2.0) mmol/L Calcium 9.4 (8.6-10.3) mg/dL Total Bilirubin 0.50 (0.2-1.0) mg/dL AST 12 L (13-39) U/L ALT 9 (7-52) U/L Alkaline Phosphatase 49 (34-104) U/L Total Protein 6.8 (6.4-8.9) g/dL Albumin 3.9 (3.2-5.2) g/dL Globulin 2.9 (2-4) g/dL Albumin/Globulin Ratio 1.3 (1-3) Lipase 13 (11.0-82.0) U/L Urine Color Yellow Urine Appearance Clear Urine pH 5.0 (5-9) Ur Specific [place] 1.020 (1.010-1.030) Urine Protein Negative (Negative) Urine Ketones Negative (Negative) Urine Blood Negative (Negative) Urine Nitrate Negative (Negative) Urine Bilirubin Negative (Negative) Urine Urobilinogen Negative (Negative) Ur Leukocyte Esterase Negative (Negative) Urine Glucose 3+(>=500 mg/dl) A (Negative) 03/12/18 Range/Units 02:20 WBC (3.5-10.8) 10^3/ul RBC (4.0-5.4) 10^6/ul Hgb (14.0-18.0) g/dl Hct (42-52) % MCV (80-94) fL MCH (27-31) pg MCHC (31-36) g/dl RDW (10.5-15) % Plt Count (150-450) 10^3/ul MPV (7.4-10.4) um3 Neut % (Auto) (38-83) % Lymph % (Auto) (25-47) % [place] % (Auto) (0-7) % Eos % (Auto) (0-6) % Baso % (Auto) (0-2) % Absolute Neuts (auto) (1.5-7.7) 10^3/ul Absolute Lymphs (auto) (1.0-4.8) 10^3/ul Absolute Monos (auto) (0-0.8) 10^3/ul Absolute Eos (auto) (0-0.6) 10^3/ul Absolute Basos (auto) (0-0.2) 10^3/ul Absolute Nucleated RBC 10^3/ul Nucleated RBC % Sodium (139-145) mmol/L Potassium (3.5-5.0) mmol/L Chloride (101-111) mmol/L Carbon Dioxide (22-32) mmol/L Anion Gap (2-11) mmol/L BUN (6-24) mg/dL Creatinine (0.67-1.17) mg/dL Est GFR ( Amer) (>60) Est GFR (Non-Af Amer) (>60) BUN/Creatinine Ratio (8-20) Glucose (70-100) mg/dL Lactic Acid 0.8 (0.5-2.0) mmol/L Calcium (8.6-10.3) mg/dL Total Bilirubin (0.2-1.0) mg/dL AST (13-39) U/L ALT (7-52) U/L Alkaline Phosphatase (34-104) U/L Total Protein (6.4-8.9) g/dL Albumin (3.2-5.2) g/dL Globulin (2-4) g/dL Albumin/Globulin Ratio (1-3) Lipase (11.0-82.0) U/L Urine Color Urine Appearance Urine pH (5-9) Ur Specific [place] (1.010-1.030) Urine Protein (Negative) Urine Ketones (Negative) Urine Blood (Negative) Urine Nitrate (Negative) Urine Bilirubin (Negative) Urine Urobilinogen (Negative) Ur Leukocyte Esterase (Negative) Urine Glucose (Negative) Assess/Plan/Problems-Billing Assessment: - Patient Problems (1) CHF (congestive heart failure) Current Visit: Yes Status: Acute Code(s): I50.9 - HEART FAILURE, UNSPECIFIED SNOMED Code(s): 27000480 Comment: Clinical dx. Echo for 03/13. Start IV furosemide, lisnopril. BNP add on requested, note was high 01/09. Tele. Note nl troponin. (2) Rheumatoid arthritis Current Visit: No Status: Acute Code(s): M06.9 - RHEUMATOID ARTHRITIS, UNSPECIFIED SNOMED Code(s): 33292841 Comment: On enbrel at home, held now in while wup continues. (3) Diabetes Current Visit: No Status: Acute Code(s): E11.9 - TYPE 2 DIABETES MELLITUS WITHOUT COMPLICATIONS SNOMED Code(s): 87620094 Comment: Lantus 20 U bid same as home dose. Metformin on hold. Note pt received IV contrast in ED. Hold saxigliptin.
[2018-03-12] MEDS: Enoxaparin(*) 40 MG/0.4 ML SYR SUBCUT SCH (08:33)
[2018-03-12] MEDS: Insulin GLARGINE(*) 1 UNITS UNIT SUBCUT SCH ×2 (08:42→20:56)
--- NOTE | 2018-03-12 10:05 | RAD ---
Indication: Shortness of breath. Single frontal view of the chest performed at 0249 hours was reviewed. Comparison is made with previous exam dated January 15, 2018. Interstitial edema consistent with vascular congestion is noted. Cardiomegaly is noted. Underlying right basilar airspace disease is not excluded. IMPRESSION: INTERSTITIAL EDEMA WITH CHF. CONSOLIDATION IN THE RIGHT LOWER LOBE IS NOT EXCLUDED.
[2018-03-12] MEDS: Lisinopril TAB* 5 MG PO SCH (10:28)
--- NOTE | 2018-03-12 10:36 | RAD ---
Indication: Chest, abdomen and pelvic pain. Contrast: Administered 122.1 ml of VISAPAQUE 320 mg/ml. CT of the chest, abdomen and pelvis was performed after IV contrast no oral contrast was given. Coronal and sagittal reconstructed images were obtained. Inferior thyroid lobes are unremarkable. No mediastinal or hilar adenopathy is noted. Heart is of mildly enlarged without pericardial effusion. There are enlarged pulmonary arteries noted. There are bilateral pleural effusions with consolidative changes in the lung bases. This may represent atelectasis or pneumonia. No pneumothorax is noted. The bony structures of the thoracic spine demonstrates kyphosis. Spinal canal is intact. No fracture is identified. CT of the abdomen and pelvis demonstrates liver to be normal in size. No focal lesions or intrahepatic ductal dilatation is noted. There is normal in size. The pancreas demonstrates no mass or pancreatic duct dilatation. The common duct is not dilated. The gallbladder demonstrates large calcified gallstones. No pericholecystic fluid or wall thickening is noted. No adrenal lesions are noted. The kidneys demonstrate symmetric nephrograms without focal lesions. Atherosclerotic aorta is noted. The bowel. Urinary bladder is unremarkable. Diverticulosis of the sigmoid colon without definite evidence of diverticulitis. Small right inguinal hernia present. This contains fat. No bowel incarceration is noted. The bony structures demonstrates degenerative disc disease at multiple levels. IMPRESSION: Bilateral pleural effusions with bibasilar atelectasi or pneumonia. Cardiomegaly is noted. Likely interstitial edema is noted. Cholelithiasis without evidence of biliary duct dilatation Diverticulosis without evidence of diverticulitis.
[2018-03-12] MEDS: Insulin LISPRO* 1 UNITS UNIT SUBCUT SCH ×3 (12:45→20:57)
[2018-03-12] MEDS: oxyCODONE TAB* 5 MG TAB PO PRN ×2 (15:30→20:54)
[2018-03-13] MEDS: Acetaminophen TAB* 325 MG PO PRN ×2 (00:55→07:16)
[2018-03-13] MEDS: oxyCODONE TAB* 5 MG TAB PO PRN (00:56)
--- NOTE | 2018-03-13 05:43 | ED ---
Thien Bautista Nilda, scribed for Amber Mares MD on 03/12/18 at 0542 . Progress - Progress Note Progress Note: This pt was s/o by George JARAMILLO), pending dispo, awaiting CT Chest/Abd/Pel. CT Chest/Abd/Pel, per radiologist, reveals: moderate bilateral pleural effusions. Moderate bilateral lower lobe lung consolidation most likely due to pneumonia and atelectasis. Mild cardiomegaly. Enlarged pulmonary arteries consistent with pulmonary artery hypertension. Mild hepatomegaly. Cholelithiasis with moderate gallbladder distention most likely associated with gallbladder dysmotility may be associated with chronic cholecystitis. If clinically indicated follow up outpatient Nuclear Medicine Hepatobiliary Scan may be needed. Diverticulosis without diverticulitis. Nodular nonspecific prostatomegaly. Moderate thoracic kyphosis. The CT exam was performed using one or more of the following dose reduction techniques: automated exposure control, adjustment of the mA and/or kV according to patient size, use of iterative reconstruction technique. Dr. Mares has reviewed this radiology report. [[id number]] Dr. Royal (hospitalist) agrees to admit pt for Dx pleural effusion and PNA. Re-Evaluation - Re-Evaluation N Re-Evaluation Time: 07:23 Comment: Reviewed results and admission plan with pt. Course/Dx - Course Course Of Treatment: This pt was s/o by George JARAMILLO), pending dispo, awaiting CT Chest/Abd/Pel. CT Chest/Abd/Pel, per radiologist, reveals: moderate bilateral pleural effusions. Moderate bilateral lower lobe lung consolidation most likely due to pneumonia and atelectasis. Mild cardiomegaly. Enlarged pulmonary arteries consistent with pulmonary artery hypertension. Mild hepatomegaly. Cholelithiasis with moderate gallbladder distention most likely associated with gallbladder dysmotility may be associated with chronic cholecystitis. If clinically indicated follow up outpatient Nuclear Medicine Hepatobiliary Scan may be needed. Diverticulosis without diverticulitis. Nodular nonspecific prostatomegaly. Moderate thoracic kyphosis. The CT exam was performed using one or more of the following dose reduction techniques: automated exposure control, adjustment of the mA and/or kV according to patient size, use of iterative reconstruction technique. Dr. Mares has reviewed this radiology report. [[id number]] Dr. Royal (hospitalist) agrees to admit pt for Dx pleural effusion and PNA. Pt agreeable to this plan. - Diagnoses Provider Diagnoses: Pneumonia, Pleural effusion - Provider Notifications Discussed Care Of Patient With: Saeid Royal - hospitalist Time Discussed With Above Provider: 07:34 Instructed by Provider To: Admit As Inpatient Discharge - Sign-Out/Discharge Documenting (check all that apply): Discharge - admit - Discharge Plan Condition: Stable Disposition: ADMITTED TO [facility] The documentation as recorded by the Thien wolff Nilda accurately reflects the service I personally performed and the decisions made by Vishnu ortiz Tudie-Ann, MD.
[2018-03-13 07:09] LABS: EGFR Non-African American 141.1 (>60)
[2018-03-13] MEDS ORDERED: Furosemide TAB* 40 MG PO SCH (09:00)
[2018-03-13] MEDS: Insulin LISPRO* 1 UNITS UNIT SUBCUT SCH ×2 (09:01→13:12)
[2018-03-13] MEDS ORDERED: Magnesium Hydroxide LIQ* 30 ML UDC PO ONE (09:08)
[2018-03-13] MEDS ORDERED: Magnesium Hydroxide LIQ* 30 ML UDC ONE (09:10)
[2018-03-13] MEDS: Enoxaparin(*) 40 MG/0.4 ML SYR SUBCUT SCH (09:22)
[2018-03-13] MEDS: Insulin GLARGINE(*) 1 UNITS UNIT SUBCUT SCH (09:23)
[2018-03-13] MEDS: Lisinopril TAB* 5 MG PO SCH (09:23)
--- NOTE | 2018-03-13 12:28 | ECHO ---
Patient: JADIEL NEWELL [facility] Rec#: [id number] : 1960 Date: 03/13/2018 Age: 57y Height: 190.5 cm / 75.0 in Weight: 96.16 kg / 211.9 lbs Sex: M BSA: 2.25 Room#: 452 Admit Date#: 03/12/2018 Type: Inpatient Referring: Saeid Royal MD Reading: Nicolas Hopkins MD Thickener Operator: Alysia Ley RDCS Thickener Operator: RAUL CC: Soni Vega Transthoracic Echocardiogram Indication: Respiratory Abn BP: 106/72 HR: 100 Rhythm: Tachycardia Findings History: Former smoker,DM,rheumatoid arthritis. Technical Comments: The study quality is good. Completed at 1129. Left Ventricle: The left ventricular chamber size is normal. Mild concentric left ventricular hypertrophy is observed. Severe global hypokinesis of the left ventricle is observed. There is severely decreased left ventricular systolic function. The estimated ejection fraction is less than 20%. Abnormal left ventricular diastolic function is observed. Left Atrium: The left atrium is moderate to severely dilated. Right Ventricle: The right ventricular cavity size is normal. The right ventricular global systolic function is normal. Right Atrium: The right atrial cavity size is normal. Aortic Valve: The aortic valve is trileaflet. There is no evidence of aortic valve thickening. There is a trace of aortic regurgitation. Mitral Valve: The mitral valve leaflets are mildly thickened. There is mild to moderate mitral regurgitation. Tricuspid Valve: The tricuspid valve leaflets are normal. There is trace to mild tricuspid regurgitation. There is evidence of mild to moderate pulmonary hypertension. Pulmonic Valve: There is no evidence of pulmonic regurgitation. There is no pulmonic stenosis. Pericardium: There is no significant pericardial effusion. Aorta: There is mild dilatation of the ascending aorta. The aortic arch is not well visualized. There is mild dilatation of the aortic root. Pulmonary Artery: The main pulmonary artery appears normal. Venous: The inferior vena cava appears normal in size. There is a greater than 50% respiratory change in the inferior vena cava dimension. Conclusions There is severely decreased left ventricular systolic function. The estimated ejection fraction is less than 20%. Severe global hypokinesis of the left ventricle is observed. The left ventricular chamber size is normal. Mild concentric left ventricular hypertrophy is observed. Abnormal left ventricular diastolic function is observed. The left atrium is moderate to severely dilated. There is mild to moderate mitral regurgitation. There is evidence of mild to moderate pulmonary hypertension. There is mild dilatation of the ascending aorta. There is mild dilatation of the aortic root. There is no prior echocardiogram available to compare with at this time. Results discussed with the attending physician, Dr. Royal. Measurements Name Value Normal Range RVDdMajor (2D) 4.2 cm (2.2 - 4.4) RAd ISD 4CH 4.1 cm (3.4 - 4.9) RA (A4C)W 3.6 cm (2.9 - 4.6) IVSd (2D) 1.3 cm (0.6 - 1) LVPWd (2D) 1.1 cm (0.6 - 1) LVIDd (2D) 5.4 cm (3.6 - 5.4) LVIDs (2D) 5.1 cm - LV FS (2D) 5 % (25 - 45) Aortic Annulus 2.3 cm (1.4 - 2.6) Ao root diameter (2D) 3.6 cm (2.1 - 3.5) Ascending Ao 3.8 cm (2.1 - 3.4) LA dimension (AP) 2D 4.7 cm (2.3 - 3.8) LAd ISD 4CH 6.6 cm (2.9 - 5.3) LA ISD 4CH W 5.9 cm (2.5 - 4.5) Name Value Normal Range LA ESV SP 4CH (A/L) 132 ml - LA ESV SP 2CH (A/L) 88 ml - LA ESV BP (A/L) 111 ml - LA ESV BP (A/L) index 49.21 ml/m2 - LA ESV SP 4CH (MOD) 123 ml - LA ESV SP 2CH (MOD) 82 ml - Name Value Normal Range MV E-wave Vmax 0.8 m/sec - MV deceleration time 138 msec - MV A-wave Vmax 0.5 m/sec - MV E:A ratio 1.51 ratio - LV septal e' Vmax 0.06 m/sec - LV lateral e' Vmax 0.08 m/sec - LV E:e' septal ratio 13.33 ratio - LV E:e' lateral ratio 10 ratio - Name Value Normal Range AV Vmax 1.1 m/sec - AV VTI 20.8 cm - AV peak gradient 4.46 mmHg - AV mean gradient 2.35 mmHg - LVOT Vmax 0.9 m/sec - LVOT VTI 15.8 cm - LVOT peak gradient 3.33 mmHg - LVOT mean gradient 1.8 mmHg - AR PHT 314 msec - AR peak gradient 48.31 mmHg - Name Value Normal Range MR Vmax 4.6 m/sec - MR VTI 130.1 cm - Name Value Normal Range TR Vmax 3.2 m/sec - TR peak gradient 40 mmHg - RAP 3 mmHg - RVSP 43 mmHg - IVC diameter 2.1 cm - Name Value Normal Range PV Vmax 0.7 m/sec - PV peak gradient 1.99 mmHg -
[2018-03-13 12:55] VITALS: BP 115/74
--- NOTE | 2018-03-13 17:25 | CONS ---
CARDIOLOGY CONSULTATION: DATE OF CONSULT: 03/13/18 REASON FOR CARDIOLOGY CONSULT: Assist in evaluation and management of patient with dyspnea on exertion, orthopnea, and found to have systolic congestive heart failure. HISTORY OF PRESENT ILLNESS: Mr. Ogden states that he developed paroxysmal nocturnal dyspnea with orthopnea and dyspnea on exertion for 2 days. He denies chest pain. He does note edema but states that is chronic for years and not changed recently. Since receiving diuretic here, the patient's shortness of breath has significantly improved. He denies URI symptoms nor recent sick contacts. PAST MEDICAL HISTORY: Significant for rheumatoid arthritis and diabetes. The patient states he has had rheumatoid arthritis for 40 years. MEDICATIONS: At home, include: 1. Tylenol p.r.n. 2. Metformin 500 mg p.o. b.i.d. 3. Insulin 20 units q.12 hours. 4. Enbrel ALLERGIES TO MEDICATIONS: Are listed as PREDNISONE per the patient, which causes insomnia, psychotic episodes, and blood in his stool. He denies shrimp, seafood or dye allergy. FAMILY HISTORY: Negative for cardiac disease. He denies family history of stroke, cancer, or diabetes. SOCIAL HISTORY: He does not smoke cigarettes, abuse alcohol, no illicit drugs. He is single, lives alone. He is a college graduate. 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 He does go to [employer] 5 to 6 days a week and does "high-rep, low-weight" exercise. REVIEW OF SYSTEMS: He denies personal history of stroke, cancer, current vomiting of blood, coughing of blood, bright red blood per rectum, or bleeding stomach ulcers. He has had blood in the stool previously from prednisone. Denies renal calculi, cholelithiasis, asthma, emphysema, pneumonia, tuberculosis , sleep apnea, home oxygen use. He does have a history of diabetes. He denies hypertension. He denies prior GA, congestive heart failure, cardiac surgery, cardiac murmurs, palpitations, claudication symptoms, pulmonary emboli, deep venous thrombosis, peripheral arterial disease, psychiatric illnesses, lupus, psoriasis, seizures, Parkinson's disease, myasthenia gravis. He has had rheumatoid arthritis for 40 years. He denies thyroid disorders, liver disorders , kidney disorders, pulmonary emboli. He does note chronic edema. He denies heartburn. All other review of systems negative x14 except as described above. PHYSICAL EXAM: Height 6 feet 3 inches, weight 212 pounds. Temperature 98.9 degrees Fahrenheit, pulse is 88 to 108, blood pressure 95/67 to 115/74, O2 saturation 95%. On general exam, he is a tall, thin man, in no acute distress. HEENT shows cranium is normocephalic and atraumatic. He has dry mucosal membranes. Neck veins are not distended. There are no carotid bruits. Visible skin warm and perfused. Affect is appropriate. He appears oriented. Mild-to- moderate kyphoscoliosis on back exam, likely chronic. Lungs are clear to auscultation. No wheezes, no rales. Cardiac Exam: S1, S2. Regular rate. 2/ 6 holosystolic murmur heard without radiation. There are no rubs or gallops. PMI is nondisplaced. Abdomen: Soft and nondistended, appears benign. Extremities: With no more than trivial peripheral edema. Pulses appear grossly intact. DIAGNOSTIC STUDIES/LAB DATA: The patient had transthoracic echocardiogram earlier today (please see also that report for further details), which showed severely depressed left ventricular ejection fraction less than 20% with [id number] left atrial dilatation, [id number] mitral regurgitation , [id number] pulmonary hypertension, mild dilatation of the ascending aorta, mild dilatation of the aortic root. No prior exam available to compare with. He completed a 12-lead EKG on 03/12/18 at 7:44, which shows sinus tachycardia at 100 beats per minute with nonspecific T-wave changes and borderline low voltage in the inferior leads. White blood cell count 6.2, hematocrit 39, platelet count 216. Sodium 139, potassium 4, chloride 103, bicarbonate 30, BUN 14, creatinine 0.59. TSH 2.64. Troponin 0.02. IMPRESSION AND PLAN: Ms. Ogden is a pleasant 57-year-old gentleman with a long history of rheumatoid arthritis, on Enbrel, who presents with 2 days of paroxysmal nocturnal dyspnea, orthopnea, and dyspnea on exertion, and he has severe systolic dysfunction with left ventricular ejection fraction less than 20 %. He has responded quite well to diuretics and is fairly well compensated. I have discussed this in detail with the patient. He is appreciative of my following recommendations, but states clearly he [facility] (as he has been for his primary care and rheumatology) including for cardiology follow up in the future and we certainly respect his decision. RECOMMENDATIONS: 1. Recommend low-dose aspirin, low-dose Coreg, AR inhibitor, and diuretic. We would recommend outpatient Aldactone. 2. Would discuss with his pricing clerk regarding whether he may be having rheumatoid arthritis flare versus Enbrel as as a possible etiology of his cardiomyopathy. 3. Ischemic evaluation as an outpatient. 4. Recheck echo in 3 months and if the EF is less than 35%, consider ICD. Again, as I discussed above, the patient states clearly he wishes to follow up any future cardiac evaluation and [facility] with [facility] whom [facility] and he courteously declines outpatient cardiac follow up with myself. The above was discussed with Dr. Royal as well. Dear Dr. Royal, thank you for asking me to see Mr. Garcia for cardiac consultation. Please do not hesitate to contact me if you have any questions or concerns regarding the patient's cardiovascular consultative care. [id number]/[facility] #: [id number] [facility]PITALMarilu
--- NOTE | 2018-03-13 21:29 | DS ---
DISCHARGE SUMMARY: DATE OF ADMISSION: DATE OF DISCHARGE: 03/13/18 HOSPITAL COURSE: This 57-year-old man presented with shortness of breath and marked orthopnea for 2 days. He had some burning pain across his lower chest, which was constant. He said he was trying to cough, but could not cough anything up. He really did not cough at all during any of my visits with him. He denied palpitations or lightheadedness. He recently was started on saxagliptin. He has be en taking Enbrel for some time. He is treated by a tobacco stripping machine operator at the [facility] for rheumatoid arthritis . The rest of the history is detailed in the physical exam. Chest x-ray was compatible with congestive heart failure. His B-natriuretic peptide was 517. Echoca rdiogram was done on 03/13/18 and showed an ejection fraction of less than 20%. He was started on lisinopril daily, furosemide by mouth. He received intravenous injection of furose mide only the first hospital day. He had a diuresis and he said that the symptoms resolved completel y. Dr. Hopkins and I both explained to him about his cardiomyopathy and the need for treatment. The p atient refused to have any medications added to his medication regimen at this time. He said he woul d go and seek prompt attention at the [facility]. I told him not to take saxagliptin or Enbrel until he sees his tobacco stripping machine operator. DISCHARGE DIAGNOSES: 1. Cardiomyopathy. 2. Diabetes. 3. Rheumatoid arthritis. DISCHARGE MEDICATIONS: 1. Acetaminophen 650 mg every 6 hours p.r.n. 2. Metformin 500 mg b.i.d. 3. Glargine insulin 20 units twice daily. [id number]/[facility] #: [id number]
== END 2018-03-13 14:45 | disposition home or self-care (01) ==
LOC: ED 00:44 → MEDTELE 07:44 → INTOOBSV 07:44
PROVIDERS: ADMIT Internal Medicine; ATTEND Internal Medicine
DX: I42.9 Cardiomyopathy, unspecified (principal); I50.20 Unspecified systolic (congestive) heart failure; J90 Pleural effusion, not elsewhere classified; E11.9 Type 2 diabetes mellitus without complications; M06.9 Rheumatoid arthritis, unspecified; R06.02 Shortness of breath; K80.20 Calculus of gallbladder without cholecystitis without obstruction; R16.0 Hepatomegaly, not elsewhere classified; Z79.4 Long term (current) use of insulin; Z79.899 Other long term (current) drug therapy; Z88.8 Allergy status to other drugs, medicaments and biological substances
CPT/HCPCS: 36415; 71045; 71260; 74177; 80048; 80053; 81003; 83605; 83690; 83880; 84443; 84484; 85025; 93005; 93306; 96365; 96372; 96375; 99284; A9270-GY; G0378; J1650; J1940; Q9967

== ENCOUNTER 2023-08-22 14:15 | Observation (INO) ==
[2023-08-22] MEDS ORDERED: Piperacillin/Tazobac 3.375 BAG 3.375 GM/100 ML BAG IV ONE (15:03)
[2023-08-22] MEDS ORDERED: Vancomycin 1,000 MG in NS 0.9% 250 ml 250 ML IVPB ONE (15:03)
[2023-08-22] MEDS ORDERED: Lactated Ringers 1000 ml BAG 1,000 ML IV SCH (15:04)
[2023-08-22] MEDS ORDERED: Dextrose 50% Syringe 50 ml 25 GM/50 ML SYRINGE IV PUSH PRN (15:49)
[2023-08-22] MEDS ORDERED: Zosyn per Pharmacy NOTE FOLLOW UP SCH (16:00)
[2023-08-22] MEDS ORDERED: Vancomycin per Pharmacy 1 EA NOTE FOLLOW UP SCH (16:00)
[2023-08-22] MEDS: Enoxaparin 40 MG/0.4 ML SYR SUBCUT SCH (21:13)
[2023-08-23] MEDS: ZOSYN 3.375 GM Q8H per EXTENDED INFUSION IV SCH ×3 (00:09→16:32)
[2023-08-23] MEDS: Vancomycin 1000 MG in NS 0.9% 250 ML IVPB SCH ×2 (05:13→13:44)
[2023-08-23 06:13] LABS: ABS Basophils 0.1 10^3/uL (0.0-0.1); ABS Eosinophils 0.2 10^3/uL (0.0-0.5); ABS Lymphocytes 0.9 10^3/uL (1.0-4.8); ABS Neutrophils 9.1 10^3/uL (1.5-7.6); Eosinophil % 1.4 %; Hematocrit 35.1 % (38-53); Hemoglobin 12.1 g/dL (13.2-16.3); Lymphocyte % 8.1 %; Mean Corpuscular Hemoglobin 31.2 pg (27-33); Mean Corpuscular Hgb Conc 34.6 g/dL (31-36); Mean Corpuscular Volume 90.1 fL (80-97); Mean Platelet Volume 8.8 fL (7.5-11.2); Platelet Count 151 10^3/uL (150-450); Red Blood Count 3.89 10^6/uL (4.06-5.63); Red Cell Distribution Width 13.2 % (12-17); White Blood Count 11.2 10^3/uL (3.6-10.2)
[2023-08-23 06:37] LABS: Calcium 8.9 mg/dL (8.6-10.3); Creatinine, Serum 0.58 mg/dL (0.67-1.17); Potassium 3.9 mmol/L (3.5-5.0); eGFR CKD-EPI 109.6 (>60)
[2023-08-23] MEDS: Cholecalciferol (VIT D3) 1,000 unit TAB PO SCH (08:52)
[2023-08-23] MEDS ORDERED: Insulin GLARGINE 100 un/ml 10 ml VIAL SUBCUT SCH (09:00)
[2023-08-23] MEDS: Enoxaparin 40 MG/0.4 ML SYR SUBCUT SCH (14:57)
[2023-08-23] MEDS ORDERED: cefTRIAXone 1 gm/50 mL D5W 1 GM/50 ML BAG IV SCH (18:30)
[2023-08-23] MEDS ORDERED: Vancomycin Trough Check NOTE FOLLOW UP ONE (20:30)
[2023-08-24] MEDS: Cholecalciferol (VIT D3) 1,000 unit TAB PO SCH (08:23)
[2023-08-24 08:54] LABS: ABS Basophils 0.1 10^3/uL (0.0-0.1); ABS Eosinophils 0.3 10^3/uL (0.0-0.5); ABS Lymphocytes 1.2 10^3/uL (1.0-4.8); ABS Monocytes 0.8 10^3/uL (0.0-1.1); ABS Neutrophils 8.5 10^3/uL (1.5-7.6); Eosinophil % 3.1 %; Hematocrit 34.3 % (38-53); Hemoglobin 11.8 g/dL (13.2-16.3); Lymphocyte % 11.3 %; Mean Corpuscular Hemoglobin 30.8 pg (27-33); Mean Corpuscular Hgb Conc 34.2 g/dL (31-36); Mean Platelet Volume 8.7 fL (7.5-11.2); Platelet Count 176 10^3/uL (150-450); Red Blood Count 3.81 10^6/uL (4.06-5.63); Red Cell Distribution Width 13.1 % (12-17)
[2023-08-24] MEDS ORDERED: Insulin GLARGINE 100 un/ml 10 ml VIAL SUBCUT SCH (09:00)
[2023-08-24 09:13] LABS: Calcium 8.7 mg/dL (8.6-10.3); Creatinine, Serum 0.51 mg/dL (0.67-1.17); Potassium 4.2 mmol/L (3.5-5.0); eGFR CKD-EPI 113.9 (>60)
[2023-08-24 11:01] LABS: Ferritin 230.3 ng/mL (24-336)
[2023-08-24 11:04] LABS: Folate 6.31 ng/mL (5.90-24.80)
[2023-08-24 13:53] VITALS: BP 142/81
[2023-08-24] MEDS: Enoxaparin 40 MG/0.4 ML SYR SUBCUT SCH (14:23)
== END 2023-08-24 15:55 ==
LOC: MED 15:52 → INTOOBSV 15:52
PROVIDERS: ADMIT Internal Medicine; ATTEND Internal Medicine